=== PATIENT | female | born 1955 | race Caucasian/White ===

== ENCOUNTER 2018-10-23 16:41 | Outpatient (RCR) | payer MEDICARE, MEDICAID, SELFPAY ==
--- NOTE | 2018-10-23 17:53 | HP.PTEVAL_ITS ---
Patient's Visit Information JOSE MOY is a 63 year old F referred to Physical Therapy by Jolie Morfin MD with a diagnosis of CHRONIC PAIN,OSTEOARTHRITIS OF SPINE WITH RADDICULOPATHY. Date of Evaluation: 10/23/18 Physical Therapist: Efren Costello PT, Cert MDT, OCS - Visit Plan Frequency: 2x /Week Duration: 4 Weeks Plan: AQUATIC FOR LUMBAR ROM,DLS,POSTURAL EX'S,LE FLEXABLITY/STRENGTHENING - Subjective Findings: This 63 y/o female presents to physical therapy with lumbar pain many years. Patient pain located left L-S -buttuck decribed as ache. Aggravating symptoms walking,standing,lifting,bending,sitting. Symptoms affect ADL's cleaning,housework tasks. Alleviating heat ,hot bath. C/O left parathesia foot left. Coughing sneezing-. Patient has had prior PT land exercises which made symptoms worse. Patient pain affects sleeping. Patient sees pain management epidural injections. Patient pain affects QOL and ADL'S.Patient had ostomy left pelvis ,neuropathy and RSD comorbities. SOCIAL: . VOCATION: disabled - Pain Left Back Pain Intensity (Out of 10): 7 Pain Intensity Range: 10 - Objective POSTURE: mild foward posture. GAIT: reciprocal pattern ,mild foward posture. PALAPTION: tender S-I. SYMMTRIES: leg length descrepency. NEURO: denies parathesia/tingling,reflexes L3-4,L4-5,L5-S1 1/3. MMT: quads/hams 4-/5,hip flexion 4-/5 ,ankle 4/5. HIP ROM: IR 25 degrees,ER 45 deegrees. FLEXABILITY: hams min tight ,mod piriformis - Special Tests L/S Slump test left side: Negative L/S Slump test right side: Negative L/S Left Straight Leg Raise: Negative L/S Right Straight Leg Raise: Negative L/S Left Femoral Nerve Tension: Negative L/S Right Femoral Nerve Tension: Negative Lumbar Standing: Flexion - Mechanical Response: No effect Lumbar Standing: Flexion - Symptoms During Testing: Increases Lumbar Standing: Flexion - Symptoms After Testing: Worse Lumbar Standing: Extension - Mechanical Response: No effect Lumbar Standing: Extension - Symptoms During Testing: Increases Lumbar Standing: Extension - Symptoms After Testing: Worse - Goals Goal 1:: Independant with Aquatic PT Goal Time Frame: 4-6 Weeks Goal 2:: Independant with posture/body mechanics Goal Time Frame: 4-6 Weeks Goal 3:: Decrease back pain by 50% or greater to improve function with ADL'S Goal Time Frame: 4-6 Weeks Goal 4:: Patient to improve lumbar ROM for function of recovery Goal Time Frame: 4-6 Weeks Goal 5:: Patient improve back owsestry by 5 points or greater to improve function. Goal Time Frame: 4-6 Weeks - Rehabilitation Potential Physical Therapy Diagnosis: Patient has chronic pain and lumbar pain with with decrease lumbar ROM ,weakness in legs,impairs function with ADL'S walking sa tnding. Rehabilitation Potential: Good - Anticipated Interventions Patient/Client Instruction: Educate patient on: Condition, Plan of Care For the Purpose of:: To decrease pain, To increase ROM, To improve muscle performance and motor function, To improve ability to perform ADL's, To increase tolerance to activity/condition/position, To improve performance and independence with ADL's, To improve ability of physical actions for home/community/work/leisure, To improve gait and locomotor functions, To increa se flexibility/ROM, To improve ability to perform tasks related to life management Therapeutic Exercise to Include: Strength training, Body mechanics, Postural training, Flexibilty training, In an aquatic setting, Dynamic Lumbar Stabilization For the Purpose of:: To decrease pain, To increase ROM, To improve muscle performance and motor function, To improve ability to perform ADL's, To increase tolerance to activity/condition/position, To improve ability of physical actions for home/community/work/leisure, To improve health of tissue, To decrease soft tissue restriction, To increase flexibility/ROM, To reduce risk of recurrence, To improve ability to perform tasks related to life management Thank you for the opportunity to evaluate your patient. For Medicare and Medicare HMO plans, please review the plan of care and approve it. It will need to be FAXED BACK to us at [phone] for Medicare purposes. For Medicare only, by signing this I certify the plan of care. Please let me know if there are questions or concerns regarding this plan of care. Physician Signature: Date:
--- NOTE | 2019-01-30 08:31 | HP.PTDCNRP_ITS ---
HP - Discharge Summary (1) - Patient Information JOSE MOY was seen in my office for initial evaluation on 10/23/18. The following Plan of Care was established for this patient: Initial Frequency: 2x /Week Initial Duration: 4 Weeks - Anticipated Interventions Patient/Client Instruction: Educate patient on: Condition, Plan of Care For the Purpose of:: To decrease pain, To increase ROM, To improve muscle perfor avelino and motor function, To improve ability to perform ADL's, To increase tolerance to activity/condition/position, To improve performance and independence with ADL's, To improve ability of physical actions for home/community/work/leisure, To improve gait and locomotor functions, To increase flexibility/ROM, To improve ability to perform tasks related to life management Therapeutic Exercise to Include: Strength training, Body mechanics, Postural training, Flexibilty training, In an aquatic setting, Dynamic Lumbar Stabilization For the Purpose of:: To decrease pain, To increase ROM, To improve muscle performance and motor function, To improve ability to perform ADL's, To increase tolerance to activity/condition/position, To improve ability of physical actions for home/community/work/leisure, To improve health of tissue, To decrease soft tissue restriction, To increase flexibility/ROM, To reduce risk of recurrence, To improve ability to perform tasks related to life management This patient was last seen in our office . Pertinent comments regarding their Physical therapy will appear below: Patient intial PT evaluation for chronic pain and hip pain thus is d/c due to NS. At this point I will be discontinuing this patient from physical therapy. I would be happy to see this patient again in the future if found appropriate by the physician. Thank you! Efren Costello, PT, Cert MDT, OCS
== END 2018-10-23 19:00 | disposition home or self-care (01) ==
LOC: PT 16:41
PROVIDERS: Family Provider Internal Medicine; PCP Internal Medicine; Referring Provider Internal Medicine; Visit Provider Internal Medicine
DX: M47.26 Other spondylosis with radiculopathy, lumbar region (principal); G89.29 Other chronic pain
CPT/HCPCS: 97162

== ENCOUNTER 2020-08-16 15:01 | Emergency (ER) | payer MEDICARE, MEDICAID, SELFPAY ==
[2020-08-16 15:03] VITALS: BP 177/102; PULSE 90; RESP 20; TEMP 35.7; O2SAT 97; BMI 37.7
--- NOTE | 2020-08-16 15:16 | CT_ITS ---
STUDY: CT ABDOMEN AND PELVIS WITH CONTRAST REASON FOR EXAM: Female, 65 years old. BRIGHT RED RECTAL BLOOD WITH ABD PAIN SINCE YESTERDAY, ELEV WBC RADIATION DOSAGE (If Supplied By Facility): CTDIvol = ( 19.31 ) mGy, DLP = ( 1289.76 ) mGycm TECHNIQUE: Transaxial images were obtained from the dome of the diaphragm to the symphysis pubis without oral contrast. IV 100mL Isovue-370 was administered. Sagittal and coronal images were reconstructed. Was Individualized dose optimization techniques were used for this CT. COMPARISON: None. FINDINGS: The visualized lung bases are unremarkable. The visualized portions of the heart are within normal limits. Normal liver. Normal gallbladder and extrahepatic biliary system. Normal spleen. Normal pancreas. Normal bilateral adrenal glands. Normal right kidney. Small 1 to 2 mm nonobstructing calyceal stones, otherwise unremarkable left kidney. Normal visualized stomach. Normal small intestine. Significant wall thickening of the distal descending and sigmoid colon with associated mesenteric stranding and free fluid suggests acute colitis. The appendix is visualized and appears normal. Normal abdominal aorta. Normal inferior vena cava. Normal retroperitoneum. Normal urinary bladder. Normal visualized uterus. Normal abdominal wall. Intact osseous structures. CT/Abdomen/Pelvis W IV Cont ONLY IMPRESSION: Significant wall thickening of the distal descending and sigmoid colon with associated mesenteric stranding and free fluid suggests acute colitis. Electronically Signed: Evangelista Silva MD at 17:20 EST Tel , Service support ,
--- NOTE | 2020-08-16 15:17 | EKG12_ITS ---
Test Reason : GI BLEED Blood Pressure : / mmHG Vent. Rate : 084 BPM Atrial Rate : 084 BPM P-R Int : 120 ms QRS Dur : 090 ms QT Int : 390 ms P-R-T Axes : 062 010 040 degrees QTc Int : 460 ms Normal sinus rhythm Nonspecific ST abnormality Abnormal ECG Confirmed by JIM SHAH, LIZZETTE ([id number]), primer expeditor and drier LUPE BRUMFIELD ([id number]) on 08/18/2020 11:56:22 A M Referred By: CL Confirmed By:ELINOR FERNANDEZ MD
--- NOTE | 2020-08-16 15:19 | ED.VIS.GEN ---
History of Present Illness Chief Complaint: GI Bleed Informant: Patient Narrative: 65-year-old female presents with concern for GI bleeding. States that she was constipated for approximately 3 days until yesterday. Patient had a large bowel movement and then began having an episode of bright red blood per rectum. States that she has had 10 of these episodes. States that she feels like she does have to have a bowel movement but then will have uncontrollable blood from her rectum. States it is dark red in nature. States that she has lower aching abdominal pain. States it is intermittent. Denies any history of GI bleeding. States that she has had diverticulosis documented in the past. Patient is not on anticoagulation. Denies any chest pain, shortness of breath. Does admit to some mild lightheadedness. Nuys any urinary symptoms or vaginal bleeding. Past Medical History - Allergies and Home Meds Allergies/Adverse Reactions: Allergies No Known Allergies Allergy (Verified 08/16/20 15:02) Primary Care Physician: Jolie Morfin MD [STAFF PHYSICIAN] - Prior records reviewed: Yes Past Medical History: None Surgical History: - - Multiple abdominal surgeries Lives: Spouse/ Significant Other Smoking Status: Current every day smoker Alcohol: None Drugs: None Review of Systems General: Denies: Chills, Fever, Sweats Eyes: Denies: Visual changes - bilaterally, Diplopia ENT: Denies: Rhinorrhea, Sore throat Cardiovascular: Denies: Chest pain, Palpitations Respiratory: Denies: Dyspnea, Cough, Dyspnea on exertion Gastrointestinal: Reports: Abdominal pain, Hematochezia. Denies: Nausea, Vomiting, Diarrhea, Melena Genitourinary: Denies: Dysuria, Hematuria, Frequency Musculoskeletal: Denies: Back pain, Extremity Pain Skin: Denies: Rash, Wounds Neurological: Denies: Headache, Weakness, Numbness Physical Exam Vital Signs/Narrative: Vital Signs Temp Pulse Resp BP Pulse Ox 08/16/20 15:03 96.2 F L 90 20 H 177/102 H 97 General: Well nourished, Well developed, No Acute Distress Head: Normocephalic, Atraumatic Eyes: Perrl, EOMI ENT: Moist mucous membranes, No rhinorrhea Neck: Supple, Nontender Cardiovascular: Regular rate, Regular rhythm, No murmurs Respiratory: No distress, CTA bilaterally, Chest nontender Abdomen: Soft, Nontender, Nondistended, Normal bowel sounds Rectal: - - Dark red blood on exam. No internal or external hemerrhoids. Back: Nontender, Normal Inspection Extremities: Nontender, No edema Skin: Normal color, No rash Neurological: Alert, Oriented x3, Cranial nerves II-XII grossly intact, Normal Strength, Normal Sensation Psychological: Normal affect, Normal Mood Diagnostic/Tx/Re-eval - Rhythm Strip Rhythm Strip: Sinus Rhythm Rate: 84 Ectopy: None - EKG Initial EKG Interpretation: Sinus Rhythm - Sinus rhythm at 84 bpm. ID interval of 120 ms. QTC of [address] changes. No evidence of ST elevation or depression at this time. - Medical Decision Making Patient appears well nontoxic. Vital signs within normal limits. Benign abdominal exam. Hemoccult positive. Hemoglobin 15.5. Patient has a slight leukocytosis. CT shows an area of colitis of the descending and sigmoid colon. Patient has no episodes of hematochezia here in the emergency department. She is orthostatic negative. Spoke with general surgeon on-call Dr. Griffin who felt that she could likely be scoped as an outpatient but that if she is bleeding heavily she should be transferred to a facility that has GI on-call. Patient is not on anticoagulation. On reevaluation patient is feeling improved. Spoke with her about admission versus transfer. Patient refuses both. States that she has to take care of her pets. Patient will be treated with Cipro, Flagyl, Bentyl. Patient states that she has had many episodes of colitis prior secondary to her anxiety. She denies any fever or chills at this time and will be given a primary care physician as she recently fired her for not giving her Xanax. Patient will also be given gastroenterologic follow-up. Asked to return for new or worsening symptoms. Patient agreeable and stable at time of discharge. Impression: 1. Rectal bleeding 2. Colitis ED Disposition - Plan for ED Patient: Disposition: Home or Assisted Living Instructions: ED Lower GI Bleeding (Stable) Prescriptions: Dicyclomine HCl [Bentyl] 20 mg PO TIDAC #20 cap Prescription Printed Ciprofloxacin [Cipro] 500 mg PO BID #14 tab Prescription Printed metroNIDAZOLE [Flagyl] 500 mg PO Q8H #21 tab Prescription Printed Referrals: Carmen Quach MD [STAFF PHYSICIAN] - 2 Days Js Marroquin MD [NON-STAFF] - 5-7 Days Additional Instructions: Please return for any worsened bleeding. If you begin to have heavy rectal bleeding please call 911 to return to the emergency department.
[2020-08-16 15:40] LABS: Absolute Lymphocyte Count 1.92 X10^3/uL (0.83-4.51); Absolute Neutrophil Count 9.9 X10^3/uL (2.0-7.7); Basophil# 0.03 X10^3/uL; Basophil% 0.2 % (0-1); Eosinophil# 0.09 X10^3/uL; Eosinophils% 0.7 % (0-5); Hematocrit 46.1 % (37-47); Hemoglobin 15.5 g/dL (12.0-15.0); Lymphocyte # 1.92 X10^3/ul (4.0); Lymphocyte % 14.8 % (19-41); Mean Corp Hgb Conc 33.6 g/dL (32-36); Mean Corpuscular Hgb 33.2 pg (27.0-32.0); Mean Corpuscular Volume 98.7 fL (81-99); Monocyte# 0.98 X10^3/uL; Monocyte% 7.6 % (0-10); NRBC Flagged by Analyzer 0 % (0-5); Neutrophil # 9.86 X10^3/uL (2.7-7.7); Neutrophil % 76.2 % (47-70); Platelet Count 218 K/mm3 (150-450); RBC Distribution Width CV 12.1 % (11.6-14.6); RBC Distribution Width SD 44.5 fl (35.1-43.9); Red Blood Count 4.67 M/mm3 (4.2-5.4); White Blood Count 12.9 K/mm3 (4.4-11.0)
[2020-08-16 15:55] VITALS: BP 133/115; BP 144/105; BP 157/75; PULSE 80; PULSE 89; PULSE 98
[2020-08-16 15:58] LABS: Bacteria 0 SEEN /hpf (None Seen); Mucous, Urine 0 SEEN /hpf (<or=2+); Red Blood Cells-Urine 0 SEEN /hpf (0-5)
[2020-08-16 15:59] LABS: ALB/GLOB Ratio 1.1 RATIO (0.9-2.4); AST(SGOT) 14 U/L (15-37); Alanine Aminotransfer ALT/SGPT 19 U/L (13-56); Albumin, Serum 3.7 g/dL (3.2-5.0); Alkaline Phosphatase 83 U/L (45-117); Anion Gap 2 (5-15); BUN 3 mg/dL (7-18); BUN/Creat Ratio 4.7 RATIO (10-20); Chloride 104 mmol/L (98-107); Creatinine, Serum 0.64 mg/dL (0.55-1.02); EST Glomerular Filtration Rate 100 mL/min (>60); Est Glom Filt Rate - Afr Amer 120 mL/min (>60); Estimated Creatinine Clearance 67.89 ml/min; Globulin 3.5 g/dL (2.2-4.2); Glucose 112 mg/dL (74-106); Potassium 3.4 mmol/L (3.5-5.1); Protein, Total 7.2 g/dL (6.4-8.2); Sodium Level 137 mmol/L (136-145)
[2020-08-16 16:00] LABS: Lactic Acid 1.3 mmol/L (0.4-1.9)
[2020-08-16 16:05] LABS: Color, Urine Yellow (Yellow); Glucose, Dipstick Normal (Normal); Ketone-Dipstick Negative (Negative); Leukocyte Esterase-Dipstick 25 /ul (Negative); Nitrite-Dipstick Negative (Negative); Occult Blood-Urine 10 /ul (Negative); Protein-Dipstick 15 mg/dl (Negative); Specific Gravity, Urine 1.015 (1.002-1.030); Urine Bilirubin Dipstick Negative (Negative); Urine Clarity Clear (Clear); Urine Urobilinogen 4 mg/dl (Normal)
[2020-08-16 16:11] LABS: Squamous Epithelial Cells - UA 5-10 SEEN /hpf (5-10); White Blood Cells 0-5 SEEN /hpf (0-5)
[2020-08-16 17:00] VITALS: BP 158/77; PULSE 72; RESP 16; O2SAT 96
[2020-08-16 17:56] VITALS: BP 176/82; PULSE 79; RESP 16; O2SAT 98
== END 2020-08-16 17:56 | disposition home or self-care (01) ==
PROVIDERS: Emergency Provider Emergency Medicine
DX: K62.5 Hemorrhage of anus and rectum (principal); K52.9 Noninfective gastroenteritis and colitis, unspecified; F17.200 Nicotine dependence, unspecified, uncomplicated
CPT/HCPCS: 74177; 80053; 81001; 82274; 83605; 84484; 85025; 93005; 99284; Q9967; A4216; J2405

== ENCOUNTER 2022-06-29 15:51 | Emergency (ER) | payer MEDICARE, MEDICAID, SELFPAY ==
[2022-06-29 15:52] VITALS: BP 220/106; PULSE 92; RESP 16; TEMP 37.1; O2SAT 97; BMI 34.2
--- NOTE | 2022-06-29 16:05 | RAD_ITS ---
INDICATION: chest pain EXAMINATION/TECHNIQUE: X-RAY - XR Chest 1 View COMPARISON: None. FINDINGS: The lungs are clear. Tortuous and calcified thoracic aorta. The heart is not enlarged. No pleural effusion or pneumothorax. Degenerative changes of the thoracic spine. RAD/Chest 1 View (Portable) IMPRESSION: No acute radiographic abnormalities. Electronically Signed: Miguel Ryan MD at 16:49 EST ,
[2022-06-29 16:39] LABS: Absolute Neutrophil Count 5.2 X10^3/uL (2.0-7.7); Basophil# 0.02 X10^3/uL; Basophil% 0.3 % (0-1); Eosinophil# 0.05 X10^3/uL; Eosinophils% 0.7 % (0-5); Hemoglobin 14.7 g/dL (12.0-15.0); Lymphocyte % 21.3 % (19-41); Mean Corp Hgb Conc 32.7 g/dL (32-36); Mean Corpuscular Hgb 32.1 pg (27.0-32.0); Mean Corpuscular Volume 98.3 fL (81-99); Mean Platelet Vol. 10.9 fl (6.2-12.0); Monocyte# 0.66 X10^3/uL; Monocyte% 8.8 % (0-10); NRBC Flagged by Analyzer 0 % (0-5); Neutrophil # 5.16 X10^3/uL (2.7-7.7); Neutrophil % 68.5 % (47-70); Platelet Count 213 K/mm3 (150-450); RBC Distribution Width CV 12.5 % (11.6-14.6); RBC Distribution Width SD 45.1 fl (35.1-43.9); Red Blood Count 4.58 M/mm3 (4.2-5.4); White Blood Count 7.5 K/mm3 (4.4-11.0)
[2022-06-29 16:43] VITALS: BP 178/107; PULSE 76; RESP 15; O2SAT 94
--- NOTE | 2022-06-29 16:51 | ED.VIS.CHEST ---
HPI History of Present Illness Chief Complaint: Chest Pain Detail of Chief Complaint: Chest pain x4 days Informant: patient Narrative Narrative: Patient presents to the emergency department with complaint of chest discomfort started 4 days ago. Patient states initially was mild and intermittent in the center of her chest. Patient states today the pain more frequent she describes a sharp stabbing pain that lasts up to 2 seconds and radiates through to her back. Patient tells me it feels like when she had pleurisy. Patient also thinks that it might be stress related as she discontinued her Klonopin 4 days ago. Patient denies recent travel or surgery. No history of PE or DVT. She has no heart history. Patient is a smoker. Prior Similar Symptoms: Yes [facility] Medical History (Updated 06/29/22 @ 19:[address] Kim Crawley DO) IBS (irritable bowel syndrome) Home Medications lisinopril 40 mg tablet 10 mg PO DAILY 08/16/20 [History Last Taken 08/16/20] oxycodone 15 mg tablet,crush resistant,extended release 12 hr 15 mg PO Q8H 08/16/20 [History Last Taken 08/15/20] doxycycline monohydrate 100 mg capsule 100 mg PO BID #20 CAPSULES 06/29/22 [Rx Last Taken Unknown] lansoprazole 30 mg capsule,delayed release (Prevacid) 30 mg PO DAILY 06/29/22 [History Last Taken Unknown] Allergy/AdvReac Type Severity Reaction Status Date / Time No Known Allergies Allergy Verified 06/29/22 16:55 Social History Smoking Status: Current every day smoker tobacco type: cigarettes ROS ROS ED Review of Systems ROS Unobtainable: other Constitutional Constitutional ED: Reports lethargy; Denies chills, fever(s), sweats or weight loss Eyes Eyes: Denies blurry vision, change in vision or diplopia ENT ENT ED: Denies rhinorrhea or sore throat Cardiovascular Cardiovascular: Reports chest pain; Denies orthopnea or racing heartbeat Respiratory/Chest Respiratory/Chest: Denies cough, dyspnea, dyspnea on exertion, orthopnea or sputum Gastrointestinal Gastrointestinal: Denies abdominal pain, diarrhea, nausea or vomiting Genitourinary Genitourinary ED: Denies dysuria, hematuria or urinary frequency Musculoskeletal Musculoskeletal: Denies arthralgias, back pain, myalgias or neck pain Integumentary Denies abscess, Abrasions or rash Neurologic Neurologic: Denies headache(s) or weakness Psychiatric Psychiatric: Denies anxiety, depression or suicidal thoughts Endocrine Endocrinology: Denies polydipsia, polyphagia or polyuria Hematologic/Lymphatic Hematologic/Lymphatic: Denies easy bleeding, easy bruising or lymphadenopathy Allergic/Immunologic Allergic/Immunologic ED: Denies mouth swelling, tongue swelling or urticaria EXAM Physical Exam Const Vital Signs: 06/29/22 15:52 06/29/22 16:43 06/29/22 16:43 Temperature 98.8 F Temperature Source Temporal Pulse Rate 92 76 Respiratory Rate 16 15 Respiratory Effort Blood Pressure 220/106 H 178/107 H Blood Pressure Mean 144 130 Pulse Ox 97 94 94 Oxygen Delivery Method Room Air Room Air Room Air 06/29/22 16:58 06/29/22 17:01 06/29/22 17:21 Temperature 98.9 F Temperature Source Temporal Pulse Rate 82 77 Respiratory Rate 16 14 Respiratory Effort Normal Non-Labored Blood Pressure 183/104 H 198/179 H Blood Pressure Mean 130 185 Pulse Ox 94 95 Oxygen Delivery Method Room Air Room Air 06/29/22 18:05 06/29/22 18:05 Temperature 98.8 F 98.8 F Temperature Source Temporal Temporal Pulse Rate 78 82 Respiratory Rate 16 14 Respiratory Effort Blood Pressure 171/86 H 171/86 H Blood Pressure Mean 114 114 Pulse Ox 97 97 Oxygen Delivery Method Room Air Room Air Positive well nourished and well developed General Appearance ED: well developed and NAD HEENT Reports TM's clear and moist mucous membranes normocephalic and atraumatic; Negative for trauma or tenderness Tympanic Membrane ED: Yes TM's clear Eyes PERRL and EOMs intact bilaterally General Eye ED: Negative for pale conjunctiva or scleral icterus Neck no lymphadenopathy, supple and no JVD General: Negative for tenderness Chest Wall inspection of chest normal and palpation of chest normal Chest: Negative for tenderness Resp normal respiratory effort and clear to auscultation bilaterally Effort and Inspection: Negative for respiratory distress or pain with movement Auscultation: Negative for rhonchi, wheezes or diminished lung sounds Cardio regular rate, regular rhythm, S1 normal heart sound, S2 normal heart sound and no murmurs Peripheral Pulses: pulses 2+ throughout GI normal to inspection, nondistended, normoactive bowel sounds, soft to palpation, non-tender, non-distended and no masses Back/Spine no CVA tenderness and no thoracic nor lumbar tenderness Extremity normal to inspection General Extremety ED: Negative for edema General Extremity: Negative for edema Neuro oriented x3, CN's II-XII intact bilaterally, no sensory deficits noted and gait normal Sensorium / Orientation: awake, alert, oriented to person, oriented to place and oriented to time Motor Exam: strength 5/5 throughout and strength abnormal Psych mental status grossly normal Skin no rashes or lesions noted and no wounds Heart Score History: Slightly/Non-Suspicious ECG: Nonspecific Repolarization Age: >/= 65 years Risk Factors: 1 or 2 Risk Factors Troponin: </= Normal Limit Score: 4 MDM MDM MDM Narrative Medical decision making narrative: Patient presents with chest pain. On arrival she was given aspirin and placed on a structures technician. EKG obtained showed a sinus rhythm with no acute ST segment changes. Lab work-up showed a normal troponin and a normal D-dimer. Sed rate was normal at 28. Chemistries were unremarkable. Chest x-ray showed nothing acute. Patient did receive a delta troponin also that was normal. At this point her chest pain is atypical and I do not feel she is having acute coronary syndrome. Patient states that she is been coughing for a month and would like to have an antibiotic because she has not gotten better in this last month at a time she is bringing up yellow and green phlegm. I will treat her with Doxy for 10 days. Patient advised to follow-up with her primary care physician within next 5 to 7 days. She is to return if worsening pain, increasing shortness of breath, or condition should worsen anyway. Lab Data Attestation: I reviewed the patient's lab results. Labs: Laboratory Results - last 24 hr 06/29/22 06/29/22 06/29/22 16:24 16:24 16:24 WBC 7.5 RBC 4.58 Hgb 14.7 Hct 45.0 MCV 98.3 MCH 32.1 H MCHC 32.7 RDW Std Deviation 45.1 H RDW Coeff of Harish 12.5 Plt Count 213 MPV 10.9 Immature Gran % (Auto) 0.400 Neut % (Auto) 68.5 Lymph % (Auto) 21.3 [place] % (Auto) 8.8 Eos % (Auto) 0.7 Baso % (Auto) 0.3 Absolute Neuts (auto) 5.2 Absolute Lymphs (auto) 1.60 Nucleated RBC % 0 ESR 28 D-Dimer Quant (PE/DVT) Sodium 137 Potassium 3.2 L Chloride 102 Carbon Dioxide 35.0 H Anion Gap 0 L BUN 4 L Creatinine 0.56 Estim Creat Clear Calc 71.94 Est GFR (MDRD) Af Amer 141 Est GFR (MDRD) Non-Af 116 BUN/Creatinine Ratio 7.2 L Glucose 122 H Calcium 9.0 Troponin I High Sens 8 06/29/22 06/29/22 16:24 18:28 WBC RBC Hgb Hct MCV MCH MCHC RDW Std Deviation RDW Coeff of Harish Plt Count MPV Immature Gran % (Auto) Neut % (Auto) Lymph % (Auto) [place] % (Auto) Eos % (Auto) Baso % (Auto) Absolute Neuts (auto) Absolute Lymphs (auto) Nucleated RBC % ESR D-Dimer Quant (PE/DVT) 0.47 Sodium Potassium Chloride Carbon Dioxide Anion Gap BUN Creatinine Estim Creat Clear Calc Est GFR (MDRD) Af Amer Est GFR (MDRD) Non-Af BUN/Creatinine Ratio Glucose Calcium Troponin I High Sens 7 Radiography Diagnostic Testing: Clinical Impression(s) from Imaging Studies Chest X-Ray 06/29/22 16:05 IMPRESSION: No acute radiographic abnormalities. Electronically Signed: Miguel Ryan MD at 16:49 EST , 1 view chest x-ray obtained interpreted by myself no acute disease process. Radiology in agreement. EKG Initial EKG: Attestation: I personally reviewed and interpreted this EKG as follows: Comments: Sinus rhythm with a rate of 87 bpm with old septal infarct Discharge Plan Triage Chief Complaint: Chest Pain ED Provider: Kim Crawley Dx/Rx/DC Orders Clinical Impression: Chest pain, Acute upper respiratory infection Instructions: Acute Bronchitis, ED Chest Pain, Uncertain Cause Prescriptions: New doxycycline monohydrate 100 mg capsule 100 mg PO BID Qty: 20 0RF No Action lisinopril 40 MG tablet 10 mg PO DAILY oxycodone 15 MG tablet,oral only,ext.rel.12 hr 15 mg PO Q8H lansoprazole [Prevacid] 30 mg capsule,delayed release(DR/EC) 30 mg PO DAILY Label Comments: TAKE 1 CAPSULE BY MOUTH EVERY DAY Primary Care Provider: Care Physician,No Primary Referrals: Care Physician,No Primary [Primary Care Provider] - Activity Restrictions/Additional Instructions: See your family doctor in 5 to 7 days for repeat exam. Disposition Disposition: Home, Self Care
[2022-06-29 17:01] VITALS: BP 183/104; PULSE 82; RESP 16; O2SAT 94
[2022-06-29] MEDS: Aspirin 81 MG TAB.CHEW 324 MG PO (17:02)
[2022-06-29 17:12] LABS: Anion Gap 0 (5-15); BUN 4 mg/dL (7-18); BUN/Creat Ratio 7.2 RATIO (10-20); Chloride 102 mmol/L (98-107); Creatinine, Serum 0.56 mg/dL (0.55-1.02); EST Glomerular Filtration Rate 116 mL/min (>60); Est Glom Filt Rate - Afr Amer 141 mL/min (>60); Estimated Creatinine Clearance 71.94 ml/min; Glucose 122 mg/dL (74-106); Potassium 3.2 mmol/L (3.5-5.1); Sodium Level 137 mmol/L (136-145); Troponin-I HS 8 pg/mL (3.0-54.0)
[2022-06-29 17:21] VITALS: BP 198/179; PULSE 77; RESP 14; TEMP 37.2; O2SAT 95
[2022-06-29 17:36] LABS: D-Dimer Quantitative (DVT/PE) 0.47 FEU/ug/m (0.27-0.49)
[2022-06-29 17:42] LABS: Erythrocyte Sedimentation Rate 28 mm/hr (0-30)
[2022-06-29 18:05] VITALS: BP 171/86; PULSE 78; PULSE 82; RESP 14; RESP 16; TEMP 37.1; O2SAT 97
[2022-06-29 18:51] LABS: Troponin-I HS 7 pg/mL (3.0-54.0)
[2022-06-29 19:13] VITALS: BP 164/115; PULSE 72; PULSE 76; RESP 12; RESP 14; O2SAT 95
[2022-06-29] MEDS: Doxycycline 100 MG CAPSULE PO (19:18)
== END 2022-06-29 19:18 | disposition home or self-care (01) ==
PROVIDERS: Emergency Provider Emergency Medicine; Visit Provider Emergency Medicine
DX: R07.9 Chest pain, unspecified (principal); J06.9 Acute upper respiratory infection, unspecified; F17.210 Nicotine dependence, cigarettes, uncomplicated; Z79.899 Other long term (current) drug therapy
CPT/HCPCS: 71045; 80048; 84484; 85025; 85379; 85652; 93005; 99284; A4216

== ENCOUNTER 2023-06-12 11:59 | Inpatient (IN) | payer MEDICARE, MEDICAID, SELFPAY ==
[2023-06-12] VITALS (12 sets, daily range): BP systolic 170–193; BP diastolic 72–139; PULSE 76–93; RESP 12–28; TEMP 36.6–36.8; O2SAT 94–98; BMI 38.2; BMI 31.1
--- NOTE | 2023-06-12 12:08 | CT_ITS ---
We are attempting to reach an attending provider to discuss findings. An addendum with communication details will be sent when the communication is complete. STUDY: CT BRAIN WITHOUT CONTRAST REASON FOR EXAM: Female, 68 years old. Neuro deficit. Stroke alert. RADIATION DOSAGE (If Supplied By Facility): CTDIvol = ( 45 ) mGy, DLP = ( 779 ) mGycm TECHNIQUE: Transaxial CT imaging of the brain was performed without administration of intravenous contrast material. Individualized dose optimization techniques were used for this CT. COMPARISON: No relevant prior comparison study available FINDINGS: PARENCHYMA: There is no acute bleed or infarct. There are chronic ischemic and atrophic changes. VENTRICLES: There is no hydrocephalus. MASTOID AIR CELLS AND PARANASAL SINUSES: The visualized paranasal sinuses are clear. The mastoid air cells are clear. BONES: There is no skull fracture. SOFT TISSUES: The visualized soft tissues are within normal limits. CT/STROKE Brain/Head without Cont IMPRESSION: No acute intracranial abnormality. Chronic ischemic and atrophic changes. Electronically Signed: Maximo Rubio MD at 12:25 EST ,
--- NOTE | 2023-06-12 12:08 | EKG12_ITS ---
Test Reason : POSS STROKE Blood Pressure : / mmHG Vent. Rate : 078 BPM Atrial Rate : 078 BPM P-R Int : 134 ms QRS Dur : 084 ms QT Int : 408 ms P-R-T Axes : 046 -02 027 degrees QTc Int : 465 ms Sinus rhythm with marked sinus arrhythmia Nonspecific ST abnormality Abnormal ECG Confirmed by JIM SHAH, LIZZETTE ([id number]), editor school photograph YAEL NEGRON ([id number]) on 06/20/2023 6:44:18 AM Referred By: Confirmed By:ELINOR FERNANDEZ MD
--- NOTE | 2023-06-12 12:08 | CT_ITS ---
STUDY: CTA HEAD AND NECK WITH CONTRAST REASON FOR EXAM: Female, 68 years old. Neuro deficit, acute, stroke suspected RADIATION DOSAGE (If Supplied By Facility): CTDIvol = ( 30.50 ) mGy, DLP = ( 749.93 ) mGycm TECHNIQUE: CT angiography was performed with a multi-detector CT scanner. Data acquisition was obtained from the skull base through the vertex following intravenous administration of IV 100mL Isovue-370. MIP images were reconstructed from the axial data set. Post-processing of the angiographic images was performed, with multiplanar reformation and 3D reconstruction. Individualized dose optimization techniques were used for this CT. COMPARISON: No relevant priors. FINDINGS: Normal bilateral petrous carotid arteries. Normal right cavernous carotid artery with a normal supraclinoid bifurcation. Normal left cavernous carotid artery with a normal supraclinoid bifurcation. Normal right A1 segments of the anterior cerebral artery. Normal left A1 segments of the anterior cerebral artery. Normal intact anterior communicating artery (ACOM). Normal bilateral A2 segments of the anterior cerebral arteries. Normal right M1 and M2 segments of the middle cerebral arteries, with a normal M1 bifurcation. Normal left M1 and M2 segments of the middle cerebral arteries, with a normal M1 bifurcation. Normal right posterior communicating artery (PCOM). Normal left posterior communicating artery (PCOM). Normal bilateral vertebral arteries. Normal basilar artery with a normal basilar bifurcation. The visualized bilateral superior cerebellar (SCA) arteries are normal. Normal bilateral P1, P2 and visualized P3 segments of the posterior cerebral arteries. There is no demonstrated aneurysm of the solomon of [place]. There is no demonstrated abnormality of the visualized brain. AORTIC ARCH: Normal visualized aortic arch. Normal origins of the brachiocephalic, left common carotid, and left subclavian arteries. RIGHT CAROTID ARTERIES: Normal right common carotid artery (CCA). Normal right common carotid bulb. Normal origin of the right internal carotid (ICA) artery without a hemodynamically significant stenosis. Normal visualized cervical portion of the right internal carotid artery. Normal origin of the right external carotid artery (ECA). LEFT CAROTID ARTERIES: Normal left common carotid artery (CCA). There is moderate atherosclerotic plaque formation without narrowing of the carotid bulb. Calcified plaque in the proximal left ICA without significant stenosis. Normal visualized cervical portion of the left internal carotid artery. Normal origin of the left external carotid artery (ECA). VERTEBRAL ARTERIES: Normal bilateral vertebral arteries. No suspicious enhancing lesion, airway narrowing or deviation. Incidental note is made of a medial deviation of the common carotid artery on the posterior right hypopharynx. Thyroid gland is unremarkable, lung apices show underlying emphysema CT/STROKE CTA Head AND Neck W/Con IMPRESSION: No CTA evidence of vaso-occlusive disease, significant stenosis, aneurysm or vascular malformation Mild to moderate calcified atherosclerotic plaque in the left common carotid artery bulb, and proximal ICA without significant stenosis N.B. : The above Results were Read Back by Pablo Birch MD to Dequan Bright MD, and understanding confirmed on 06/12/2023 12:40:02 (ET). Electronically Signed: Pablo Birch MD at 12:41 EST ,
--- NOTE | 2023-06-12 12:08 | RAD_ITS ---
STUDY: X-RAY CHEST REASON FOR EXAM: Female, 68 years old. Chest pain TECHNIQUE: Frontal view of the chest COMPARISON: 06/29/2022 FINDINGS: The lungs are clear. There are no pleural effusions. There is no pneumothorax. The heart is normal in size. The visualized osseous structures are within normal limits. RAD/Chest 1 View IMPRESSION: No acute thoracic pathology. Electronically Signed: Maximo Rubio MD at 13:01 EST ,
--- NOTE | 2023-06-12 12:08 | ED.VIS.STROK ---
HPI History of Present Illness Chief Complaint: Confusion Narrative Narrative: 68-year-old female past medical history of hypertension, is a smoker, presents with expressive aphasia and slurred speech that she has had since she woke up this morning. She went to bed last evening at around 10 PM and woke up today stating that she was having problems concentrating, and getting her words out. Additionally, she had stated that this happened to her 2 days ago, but resolved. Stroke team was activated in the room while RN was triaging. Patient denies other symptoms. [facility] Medical History IBS (irritable bowel syndrome) Home Medications lisinopril 40 mg tablet 10 mg PO DAILY 08/16/20 [History Last Taken 08/16/20] oxycodone 15 mg tablet,crush resistant,extended release 12 hr 15 mg PO Q8H 08/16/20 [History Last Taken 08/15/20] doxycycline monohydrate 100 mg capsule 100 mg PO BID #20 CAPSULES 06/29/22 [Rx Last Taken Unknown] lansoprazole 30 mg capsule,delayed release (Prevacid) 30 mg PO DAILY 06/29/22 [History Last Taken Unknown] Allergy/AdvReac Type Severity Reaction Status Date / Time No Known Allergies Allergy Verified 06/12/23 11:59 Social History Smoking Status: Current every day smoker tobacco type: cigarettes ROS ROS ED ROS Narrative Limited secondary to aphasia. Constitutional: No fever, no chills. HEENT: No sore throat. No neck pain. No loss of vision. No rhinorrhea. Cardiovascular: No chest pain. No palpitations. No pedal edema. Respiratory: No cough, no shortness of breath. Abdominal: No abdominal pain. No nausea. No vomiting. Genitourinary: No dysuria. No hematuria. Musculoskeletal: No myalgias. No arthralgias. Neurologic: No headaches. No dizziness. No lightheadedness. Previous difficulty with speech/expressive aphasia 2 days ago-resolved Skin: No rash. No change in color. Psychiatric: No depression. No anxiety. EXAM Physical Exam Narrative Exam Narrative: Afebrile. Vital signs noted. Positive elevation in blood pressure of 170/113. Nontoxic-appearing. Regular rate and rhythm. Lungs clear to auscultation bilaterally. Abdomen soft and nontender with normal active bowel sounds. NIH of 4 for expressive aphasia and dysarthria Const Vital Signs: 06/12/23 12:01 06/12/23 12:09 06/12/23 12:13 Temperature 98.2 F Temperature Source Temporal Pulse Rate 88 Respiratory Rate 28 H Respiratory Effort Normal Non-Labored Respiratory Pattern Normal Blood Pressure 170/113 H 170/113 H Blood Pressure Mean 132 132 Pulse Ox 98 Oxygen Delivery Method 06/12/23 12:08 06/12/23 12:08 06/12/23 12:38 Temperature Temperature Source Pulse Rate 88 93 Respiratory Rate 28 H 16 Respiratory Effort Respiratory Pattern Blood Pressure 170/113 H 172/139 H Blood Pressure Mean 132 150 Pulse Ox 98 96 Oxygen Delivery Method Room Air Room Air Room Air 06/12/23 13:08 06/12/23 13:00 Temperature Temperature Source Pulse Rate 90 76 Respiratory Rate 16 13 Respiratory Effort Respiratory Pattern Blood Pressure 180/83 H 193/112 H Blood Pressure Mean 115 139 Pulse Ox 94 94 Oxygen Delivery Method Room Air Room Air NIHSS NIHSS Initial: 1a Level of Consciousness: 0 1b LOC Questions (Score 2 if aphasic/stupor): 0 1c LOC Commands (Only score 1st attempt): 0 2 Best Gaze (If aphasic, use reflexive mvmts.): 0 3 Visual: 0 4 Facial Palsy: 0 5 Motor Arm Right (UN = amputation/fusion): 0 5 Motor Arm Left: 0 6 Motor Leg Right: 0 7 Limb ataxia (Only + if out of proportion): 0 8 Sensory (Aphasia/stupor=0 or 1, coma=2): 0 9 Best Language: 3 10 Dysarthria (mute, coma=2, intubated=UN): 1 Total Score: 4 MDM MDM MDM Narrative Medical decision making narrative: Stroke team was activated. I do feel that with her risk of hypertension and being a smoker, that this could be TIA versus stroke versus intracranial hemorrhage. As she does not have a lateralizing symptom, given her expressive aphasia and dysarthria, I do feel that the stroke team is appropriate. She is a wake-up stroke and is difficult to pinpoint her time on when she was last known well. EKG was obtained and interpreted by myself independently which demonstrates normal sinus rhythm at 78 bpm with sinus arrhythmia but no acute ST changes. No STEMI. I reviewed her laboratory work and she has normal white count of 7.5, hemoglobin slightly hemoconcentrated at 15.5, hematocrit 47.8, platelet count 305 and normal. Her electrolyte panel is grossly unremarkable with a creatinine of 0.84 and BUN of 10. Sodium normal at 141 with potassium slightly low at 3.4 which I think is nonspecific. High-sensitivity troponin is 9. Chest x-ray in 1 view obtained and interpreted by myself independently shows no evidence of pneumonia or pneumothorax. I reviewed the radiology report which confirms my independent interpretation. I did receive a call from the radiologist regarding the CT of the head which shows no acute hemorrhage or mass. I also received a call from the radiologist regarding the CTA of the head and neck which shows some calcifications of the internal carotid but no significant stenosis. In discussion with the teleneurologist, it was not felt that she was a tPA candidate because she is most likely outside the window. It was felt that with a normal CT and CTA that she could be admitted here for further stroke workup. I will discuss patient with the hospitalist. Disposition is assigned observation in the PCU. Patient is in stable condition. History & Record Review Discussion w/independent historian: Patient Additional record(s) reviewed:: Prior ED visit and Prior labs Lab Data Attestation: I reviewed the patient's lab results. Labs: Laboratory Results - last 24 hr 06/12/23 12:05 WBC 7.5 RBC 4.77 Hgb 15.5 H Hct 47.8 H MCV 100.2 H MCH 32.5 H MCHC 32.4 RDW Std Deviation 47.1 H RDW Coeff of Harish 12.8 Plt Count 305 MPV 9.7 Immature Gran % (Auto) 0.400 Neut % (Auto) 64.5 Lymph % (Auto) 24.1 [place]calfe % (Auto) 8.4 Eos % (Auto) 1.9 Baso % (Auto) 0.7 Absolute Neuts (auto) 4.8 Absolute Lymphs (auto) 1.81 Nucleated RBC % 0 PT 13.7 INR 1.1 APTT 27.3 Sodium 141 Potassium 3.4 L Chloride 107 Carbon Dioxide 32.0 Anion Gap 2 L BUN 10 Creatinine 0.84 Estim Creat Clear Calc 91.73 Est GFR (MDRD) Af Amer 88 Est GFR (MDRD) Non-Af 73 BUN/Creatinine Ratio 12.0 Glucose 130 H Calcium 9.5 Troponin I High Sens 9 Radiography Diagnostic Testing: Clinical Impression(s) from Imaging Studies Brain CT 06/12/23 12:08 IMPRESSION: No acute intracranial abnormality. Chronic ischemic and atrophic changes. Electronically Signed: Maximo Rubio MD at 12:25 EST , ADDENDUM: 06/12/23 1233 IMPRESSION: No acute intracranial abnormality. Chronic ischemic and atrophic changes. N.B. : The above Results were Read Back by Maximo Rubio MD to Dequan Birght MD, and understanding confirmed on 06/12/2023 12:26:41 (ET). Electronically Signed: Maximo Rubio MD at 12:25 EST , Chest X-Ray 06/12/23 12:08 IMPRESSION: No acute thoracic pathology. Electronically Signed: Maximo Rubio MD at 13:01 EST , Head/Neck CTA 06/12/23 12:08 IMPRESSION: No CTA evidence of vaso-occlusive disease, significant stenosis, aneurysm or vascular malformation Mild to moderate calcified atherosclerotic plaque in the left common carotid artery bulb, and proximal ICA without significant stenosis N.B. : The above Results were Read Back by Pablo Birch MD to Dequan Bright MD, and understanding confirmed on 06/12/2023 12:40:02 (ET). Electronically Signed: Pablo Birch MD at 12:41 EST , ADDENDUM: 06/12/23 1248 IMPRESSION: No CTA evidence of vaso-occlusive disease, significant stenosis, aneurysm or vascular malformation Mild to moderate calcified atherosclerotic plaque in the left common carotid artery bulb, and proximal ICA without significant stenosis N.B. : The above Results were Read Back by Pablo Birch MD to Dequan Bright MD, and understanding confirmed on 06/12/2023 12:40:02 (ET). Electronically Signed: Pablo Birch MD at 12:41 EST Reading Location ID and State: [facility] / [place] , Service support , Management Discussion w/another healthcare provider: Hospitalist (Dr. Napoles) Discharge Plan Dx/Rx/DC Orders Clinical Impression: Dysarthria, Expressive aphasia, Hypertension Disposition Disposition: Acute Care Hospital [facility]
[2023-06-12 12:15] LABS: Absolute Lymphocyte Count 1.81 X10^3/uL (0.83-4.51); Absolute Neutrophil Count 4.8 X10^3/uL (2.0-7.7); Basophil# 0.05 X10^3/uL; Basophil% 0.7 % (0-1); Eosinophil# 0.14 X10^3/uL; Eosinophils% 1.9 % (0-5); Hematocrit 47.8 % (37-47); Hemoglobin 15.5 g/dL (12.0-15.0); Lymphocyte # 1.81 X10^3/ul (0.83-4.51); Lymphocyte % 24.1 % (19-41); Mean Corp Hgb Conc 32.4 g/dL (32-36); Mean Corpuscular Hgb 32.5 pg (27.0-32.0); Mean Corpuscular Volume 100.2 fL (81-99); Mean Platelet Vol. 9.7 fl (6.2-12.0); Monocyte# 0.63 X10^3/uL; Monocyte% 8.4 % (0-10); NRBC Flagged by Analyzer 0 % (0-5); Neutrophil # 4.84 X10^3/uL (2.7-7.7); Neutrophil % 64.5 % (47-70); Platelet Count 305 K/mm3 (150-450); RBC Distribution Width CV 12.8 % (11.6-14.6); RBC Distribution Width SD 47.1 fl (35.1-43.9); Red Blood Count 4.77 M/mm3 (4.2-5.4); White Blood Count 7.5 K/mm3 (4.4-11.0)
[2023-06-12 12:21] LABS: International Normalized Ratio 1.1; Prothrombin Time (Protime)PT. 13.7 SECONDS (11.7-14.9)
[2023-06-12 12:22] LABS: Partial Thromboplast Time 27.3 Seconds (24.1-36.2)
[2023-06-12 12:30] LABS: Anion Gap 2 (5-15); BUN 10 mg/dL (7-18); Calcium,Total 9.5 mg/dL (8.5-10.1); Chloride 107 mmol/L (98-107); Creatinine, Serum 0.84 mg/dL (0.55-1.02); EST Glomerular Filtration Rate 73 mL/min (>60); Est Glom Filt Rate - Afr Amer 88 mL/min (>60); Estimated Creatinine Clearance 91.73 ml/min; Glucose 130 mg/dL (74-106); Potassium 3.4 mmol/L (3.5-5.1); Sodium Level 141 mmol/L (136-145); Troponin-I HS 9 pg/mL (3.0-54.0)
--- NOTE | 2023-06-12 13:43 | ED.RN ---
PT REQUESTS SISTER BE CONTACTED AND INFORMED OF ADMISSION. THIS RN CONTACTS PT SISTER TAMI, AND INFORMS HER OF PT ADMISSION AND NEEDING TO FIGURE OUT WHO IS GOING TO TAKE CARE OF THE PATIENTS DOG. SISTER REPORTS THAT SHE WILL FIGURE IT OUT.
[2023-06-12 14:23] LABS: Magnesium 2.3 mg/dL (1.6-2.6)
--- NOTE | 2023-06-12 16:16 | PCM.HP.STD ---
HPI - General General Date of Admission: 06/12/23 Date of Service: 06/12/23 Chief Complaint: Aphasic, dysarthric, altered mental status after she woke up. HPI Narrative JOSE MOY, is a 68 F Was brought to ED for aphasia. The patient can not express herself, does not find words, has moderate language deficits and also cannot pronounce word. She does not understand the communication but keeps on talking irrelevant. She cannot read or write language. She woke up today stating that she has problem concentrating and getting the words out. Similar instance happened about 2 days ago but got a spontaneously resolved. Patient cannot give history herself. Communication is not possible. History mainly taken from ED physician and chart review. In ED, stroke alert was called and ER physician talked to [facility] teleneurologist. Preliminary workup was done including CT head and CTA head and neck. Patient not candidate for thrombolytic because out of time window and LKW not clear. Patient is everyday smoker. Patient further admitted for stroke workup. Patient blood pressure was high in ED but within BP parameters as per stroke guidelines. [facility] Medical History IBS (irritable bowel syndrome) Home Medications lisinopril 40 mg tablet 10 mg PO DAILY 08/16/20 [History Last Taken 08/16/20] oxycodone 15 mg tablet,crush resistant,extended release 12 hr 15 mg PO Q8H 08/16/20 [History Last Taken 08/15/20] doxycycline monohydrate 100 mg capsule 100 mg PO BID #20 CAPSULES 06/29/22 [Rx Last Taken Unknown] lansoprazole 30 mg capsule,delayed release (Prevacid) 30 mg PO DAILY 06/29/22 [History Last Taken Unknown] Allergy/AdvReac Type Severity Reaction Status Date / Time No Known Allergies Allergy Verified 06/12/23 11:59 Social History Smoking Status: Current every day smoker tobacco type: cigarettes ROS ROS Narrative Patient cannot give history and 14 review of system as she cannot understand the communication. Review of Systems ROS Unobtainable: due to encephalopathy and due to mental status Vital Signs Vital Signs Vital Signs: 06/12/23 12:01 06/12/23 12:09 06/12/23 12:13 Temperature 98.2 F Temperature Source Temporal Pulse Rate 88 Respiratory Rate 28 H Respiratory Effort Normal Non-Labored Respiratory Pattern Normal Blood Pressure 170/113 H 170/113 H Blood Pressure Mean 132 132 Pulse Ox 98 Oxygen Delivery Method 06/12/23 12:08 06/12/23 12:08 06/12/23 12:38 Temperature Temperature Source Pulse Rate 88 93 Respiratory Rate 28 H 16 Respiratory Effort Respiratory Pattern Blood Pressure 170/113 H 172/139 H Blood Pressure Mean 132 150 Pulse Ox 98 96 Oxygen Delivery Method Room Air Room Air Room Air 06/12/23 13:08 06/12/23 13:00 06/12/23 13:30 Temperature Temperature Source Pulse Rate 90 76 77 Respiratory Rate 16 13 12 Respiratory Effort Respiratory Pattern Blood Pressure 180/83 H 193/112 H 188/104 H Blood Pressure Mean 115 139 132 Pulse Ox 94 94 96 Oxygen Delivery Method Room Air Room Air Room Air Weight Weight: 194 lb 7.163 oz Body Mass Index (BMI) 38.2 Physical Exam Narrative General: Awake and alert but disoriented to time and place and person. Seems confused and frustrated. HEENT: Atraumatic, PERRLA, EOMI, Normocephalic Oral: Oral mucosa moist no Gingival or Mucosal Lesions/ Ulcerations Neck: Supple, No JVD, Negative Carotid Bruits Lungs: Air entry diminished in bilateral lung bases. No crepitation/rhonchi Cardiovascular: Regular rate, Regular Rhythm, Normal S1, Normal S2, No murmurs Abdomen: Bowel Sounds Present, Soft, Non Tender, Non-Distended : No renal angle tenderness. No suprapubic tenderness. Extremities: No edema, Capillary Refill Less than 3 Seconds Skin: No rashes, No breakdown Musculoskeletal: ROM intact. No Tenderness to Palpation of Joints or Extremities Neurological: Patient does not follow command. NIH stroke scale 4 for answering incorrectly LOC questions and mild to moderate aphasia and dysarthria. Cranial nerves II-XII grossly intact, DTR 2+/4. Psych/Mental Status: Flat affect. Frustrated. Does not understand. Results Lab / Micro Data 06/12/23 12:05 06/12/23 12:05 Labs: Laboratory Results - last 24 hr 06/12/23 12:05: WBC 7.5, RBC 4.77, Hgb 15.5 H, Hct 47.8 H, MCV 100.2 H, MCH 32.5 H, MCHC 32.4, RDW Std Deviation 47.1 H, RDW Coeff of Harish 12.8, Plt Count 305, MPV 9.7, Immature Gran % (Auto) 0.400, Neut % (Auto) 64.5, Lymph % (Auto) 24.1, [place] % (Auto) 8.4, Eos % (Auto) 1.9, Baso % (Auto) 0.7, Absolute Neuts (auto) 4.8, Absolute Lymphs (auto) 1.81, Nucleated RBC % 0, PT 13.7, INR 1.1, APTT 27.3, Sodium 141, Potassium 3.4 L, Chloride 107, Carbon Dioxide 32.0, Anion Gap 2 L, BUN 10, Creatinine 0.84, Estim Creat Clear Calc 91.73, Est GFR (MDRD) Af Amer 88, Est GFR (MDRD) Non-Af 73, BUN/Creatinine Ratio 12.0, Glucose 130 H, Calcium 9.5, Phosphorus 3.0, Magnesium 2.3, Troponin I High Sens 9 Imagaing Radiology Impression Brain CT 06/12/23 12:08 IMPRESSION: No acute intracranial abnormality. Chronic ischemic and atrophic changes. Electronically Signed: Maximo Rubio MD at 12:25 EST , ADDENDUM: 06/12/23 1233 IMPRESSION: No acute intracranial abnormality. Chronic ischemic and atrophic changes. N.B. : The above Results were Read Back by Maximo Rubio MD to Dequan Bright MD, and understanding confirmed on 06/12/2023 12:26:41 (ET). Electronically Signed: Maximo Rubio MD at 12:25 EST , Chest X-Ray 06/12/23 12:08 IMPRESSION: No acute thoracic pathology. Electronically Signed: Maximo Rubio MD at 13:01 EST , Head/Neck CTA 06/12/23 12:08 IMPRESSION: No CTA evidence of vaso-occlusive disease, significant stenosis, aneurysm or vascular malformation Mild to moderate calcified atherosclerotic plaque in the left common carotid artery bulb, and proximal ICA without significant stenosis N.B. : The above Results were Read Back by Pablo Birch MD to Dequan Bright MD, and understanding confirmed on 06/12/2023 12:40:02 (ET). Electronically Signed: Pablo Birch MD at 12:41 EST , ADDENDUM: 06/12/23 1248 IMPRESSION: No CTA evidence of vaso-occlusive disease, significant stenosis, aneurysm or vascular malformation Mild to moderate calcified atherosclerotic plaque in the left common carotid artery bulb, and proximal ICA without significant stenosis N.B. : The above Results were Read Back by Pablo Birch MD to Dequan Bright MD, and understanding confirmed on 06/12/2023 12:40:02 (ET). Electronically Signed: Pablo Birch MD at 12:41 EST , Assessment & Plan Assessment/Plan (1) Expressive aphasia: (2) Dysarthria: PLAN: Plan This 68-year-old female patient admitted for evaluation of stroke. 1. Sensory moderate dysphagia and dysarthria and acute encephalopathy most likely due to acute stroke: Patient is being admitted in PCU. CT brain does not show acute intracranial abnormality. CT of brain shows mild to moderate calcified atherosclerotic in the left CCA bulb and proximal ICA without significant stenosis. NIH stroke scale 4. PT, OT, speech therapy/swallow evaluation and management, nursing NIH stroke scale, BP and glucose monitoring and control as per stroke protocol. TSH, A1c fasting lipid profile tomorrow AM. MRI brain and 2D echo with bubble contrast study ordered. Currently patient is n.p.o. until speech cleared by nursing protocol and a speech therapist. Baby aspirin and atorvastatin ordered. D5 half NS for nutritional purposes as patient is NPO. 2. Uncontrolled hypertension: Blood pressure is elevated but within a stroke guidelines of permissive hypertension. 3. Patient has IBS and possible GERD: On lansoprazole. DVT prophylaxis moderate to high risk: Enoxaparin 40 mg subcu daily. CODE STATUS: Full code unverified. Clinical Impression(s) from Imaging Studies Brain CT 06/12/23 12:08 IMPRESSION: No acute intracranial abnormality. Chronic ischemic and atrophic changes. Chest X-Ray 06/12/23 12:08 IMPRESSION: No acute thoracic pathology. Head/Neck CTA 06/12/23 12:08 IMPRESSION: No CTA evidence of vaso-occlusive disease, significant stenosis, aneurysm or vascular malformation Mild to moderate calcified atherosclerotic plaque in the left common carotid artery bulb, and proximal ICA without significant stenosis Laboratory Results 06/12/23 12:05: WBC 7.5, RBC 4.77, Hgb 15.5 H, Hct 47.8 H, MCV 100.2 H, MCH 32.5 H, MCHC 32.4, RDW Std Deviation 47.1 H, RDW Coeff of Harish 12.8, Plt Count 305, MPV 9.7, Immature Gran % (Auto) 0.400, Neut % (Auto) 64.5, Lymph % (Auto) 24.1, [place] % (Auto) 8.4, Eos % (Auto) 1.9, Baso % (Auto) 0.7, Absolute Neuts (auto) 4.8, Absolute Lymphs (auto) 1.81, Nucleated RBC % 0, PT 13.7, INR 1.1, APTT 27.3, Sodium 141, Potassium 3.4 L, Chloride 107, Carbon Dioxide 32.0, Anion Gap 2 L, BUN 10, Creatinine 0.84, Estim Creat Clear Calc 91.73, Est GFR (MDRD) Af Amer 88, Est GFR (MDRD) Non-Af 73, BUN/Creatinine Ratio 12.0, Glucose 130 H, Calcium 9.5, Phosphorus 3.0, Magnesium 2.3, Troponin I High Sens 9 Charges/Coding Visit Charges Inpatient E&M: 43298 Init Hosp L3
[2023-06-12] MEDS: 0.9% Normal Saline (1000mL) 1,000 ML 75 ML IV (18:52)
[2023-06-12] MEDS: Potassium Chloride 40 MEQ in Dext 5%-0.45% NS 1,000 ML 50 MEQ IV (18:53)
[2023-06-12] MEDS: 0.9% Saline Lock 10 ML Syringe IV (18:53)
[2023-06-12] MEDS: Atorvastatin Calcium 80 MG Tablet PO (20:31)
[2023-06-12] MEDS: Aspirin 325 MG Tablet PO (20:31)
[2023-06-12] MEDS: Enoxaparin 40 MG/0.4 ML Syringe SC (20:32)
[2023-06-12 22:27] LABS: Bedside Glucose 105 mg/dL (74-106)
[2023-06-13] VITALS (11 sets, daily range): BP systolic 133–199; BP diastolic 74–124; PULSE 78–95; RESP 14–18; TEMP 36.3–36.9; O2SAT 92–97; BMI 31.2
[2023-06-13 06:44] LABS: Bedside Glucose 118 mg/dL (74-106)
[2023-06-13 06:49] LABS: Absolute Neutrophil Count 3.7 X10^3/uL (2.0-7.7); Basophil# 0.04 X10^3/uL; Basophil% 0.7 % (0-1); Eosinophil# 0.11 X10^3/uL; Eosinophils% 1.8 % (0-5); Hematocrit 45.5 % (37-47); Hemoglobin 14.5 g/dL (12.0-15.0); Lymphocyte % 29.3 % (19-41); Mean Corp Hgb Conc 31.9 g/dL (32-36); Mean Corpuscular Hgb 31.3 pg (27.0-32.0); Mean Corpuscular Volume 98.3 fL (81-99); Mean Platelet Vol. 10.9 fl (6.2-12.0); Monocyte# 0.46 X10^3/uL; Monocyte% 7.5 % (0-10); NRBC Flagged by Analyzer 0 % (0-5); Neutrophil # 3.72 X10^3/uL (2.7-7.7); Neutrophil % 60.4 % (47-70); Platelet Count 270 K/mm3 (150-450); RBC Distribution Width CV 12.6 % (11.6-14.6); RBC Distribution Width SD 45.5 fl (35.1-43.9); Red Blood Count 4.63 M/mm3 (4.2-5.4); White Blood Count 6.2 K/mm3 (4.4-11.0)
[2023-06-13 07:24] LABS: Anion Gap 5 (5-15); BUN 5 mg/dL (7-18); BUN/Creat Ratio 8.9 RATIO (10-20); Calcium,Total 8.7 mg/dL (8.5-10.1); Chloride 105 mmol/L (98-107); Cholesterol 112 mg/dL (200); Creatinine, Serum 0.56 mg/dL (0.55-1.02); EST Glomerular Filtration Rate 115 mL/min (>60); Est Glom Filt Rate - Afr Amer 139 mL/min (>60); Glucose 114 mg/dL (74-106); High Density Lipoprotein 40 mg/dL; Potassium 3.3 mmol/L (3.5-5.1); Sodium Level 140 mmol/L (136-145); Thyroid Stim Hormone (TSH) 0.48 uIU/mL (0.358-3.74); Triglycerides 90 mg/dL; Very Low Density Lipoprotein 18 mg/dL (5-40)
[2023-06-13 07:32] LABS: Hemoglobin A1c 5.2 % (3.8-5.6)
--- NOTE | 2023-06-13 09:00 | MRI_ITS ---
STUDY: MRI BRAIN WITHOUT CONTRAST REASON FOR EXAM: Female, 68 years old. acute stroke with aphasia TECHNIQUE: Standardized multiplanar fat and water weighted pulse sequences were obtained. COMPARISON: CT of the brain June 12, 2023 FINDINGS: Normal size of the ventricles and extra-axial spaces for the patient''s age. Moderate periventricular white matter ischemic changes.. There is restricted diffusion in the left parietal lobe in distribution of middle cerebral artery and as well as the anterior frontal lobe in distribution of anterior communicating artery. Normal bilateral basal ganglia. Normal thalami. There is no extra-axial fluid accumulation. Normal flow voids within the major intracranial circulation suggesting patency by spin echo criteria. Normal sella turcica, pituitary gland, infundibular stalk, optic chiasm and hypothalamus. Normal tectal plate and pineal gland. Normal midbrain, pipo and medulla. Normal cerebellum. Normal basal cisterns. Normal bilateral temporal bones. Normal bilateral internal auditory canals. No demonstrated orbital abnormality, within the constraints of a routine brain study. Normal visualized paranasal sinuses. Normal calvarium and skull base. Normal visualized soft tissue structures. Normal visualized upper cervical spine. MRI/Brain without Contrast IMPRESSION: Moderate periventricular white matter ischemic changes. Acute left posterior parietal and left anterior frontal lobe ischemic infarction N.B. : The above Results were Read Back by Eduardo Blunt MD to Max Napoles MD, and understanding confirmed on 06/13/2023 16:29:10 (ET). Electronically Signed: Eduardo Blunt MD at 16:31 EST ,
[2023-06-13] MEDS: Aspirin 81 MG TAB.CHEW PO (09:02)
--- NOTE | 2023-06-13 10:32 | ECHOD_ITS ---
Reason For Study: TIA/CVA Procedure This was a 2D Doppler, Color Flow transthoracic echocardiogram. Exam performed portable in patient room. Left Ventricle Normal LV size. The estimated ejection fraction is 65 %. No evidence for diastolic dysfunction. No regional wall motion abnormalities noted. Right Ventricle Normal RV size. Normal systolic function. Atria Normal left atrium. Normal right atrium. No doppler evidence for ASD. Bubble contrast study negative for right to left interatrial shunt. Mitral Valve There is no mitral valve stenosis. No mitral valve insufficiency. Tricuspid Valve There is no tricuspid stenosis. Unable to estimate RV systolic pressure due to inadequate jet, pulmonary artery pressure probably normal. Aortic Valve Trisinus/trileaflet aortic valve. There is no aortic stenosis. No aortic valve insufficiency. Pulmonic Valve There is no pulmonic valvular stenosis. No pulmonic valve insufficiency. Great Vessels Normal aortic root. Pericardium/Pleural No pericardial effusion. Medication Performed a rapid injection of agitated mix of 9 cc saline and 1cc air to assess for atrial septal defect. MMode/2D Measurements & Calculations LVIDd: 4.7 cm IVSd: 1.0 cm Ao root diam: 3.0 cm LVIDs: 3.5 cm LVPWd: 0.92 cm RVDd: 2.9 cm FS: 26.5 % LAV(MOD-bp): 51.7 ml LVAd ap4: 26.8 cm2 LVAd ap2: 23.7 cm2 LAV(MOD-bp) Indexed: 26.9 ml/m2 LVLd ap4: 7.7 cm LVLd ap2: 7.5 cm LAV(MOD-sp2): 50.1 ml EDV(MOD-sp4): 77.2 ml EDV(MOD-sp2): 63.1 ml LAV(MOD-sp4): 44.5 ml EDV(sp4-el): 79.3 ml EDV(sp2-el): 63.4 ml LVAs ap4: 14.7 cm2 LVAs ap2: 12.5 cm2 LVLs ap4: 6.2 cm LVLs ap2: 6.2 cm ESV(MOD-sp4): 31.3 ml ESV(MOD-sp2): 23.8 ml ESV(sp4-el): 29.3 ml ESV(sp2-el): 21.3 ml EF(MOD-sp4): 59.4 % EF(MOD-sp2): 62.4 % EF(sp4-el): 63.0 % SV(MOD-sp4): 45.9 ml SV(MOD-sp2): 39.4 ml SV(sp4-el): 49.9 ml LA A4 area: 15.9 cm2 LA dimension(2D): 3.8 cm RA A4 area: 10.9 cm2 TAPSE: 2.5 cm Time Measurements MV dec time: 0.24 sec Doppler Measurements & Calculations MV E max orestes: 83.6 cm/sec Lat Peak E' Orestes: 8.5 cm/sec Med Peak E' Orestes: 7.4 cm/sec MV A max orestes: 108.6 cm/sec E/E' lat: 9.9 E/E' med: 11.3 MV E/A: 0.77 MV V2 max: 123.4 cm/sec MV P1/2t max orestes: 87.0 cm/sec Ao V2 max: 186.6 cm/sec MV max P.1 mmHg MV P1/2t: 66.6 msec Ao max P.9 mmHg MV V2 mean: 72.4 cm/sec Ao V2 mean: 127.0 cm/sec MV mean P.4 mmHg MV dec slope: 382.4 cm/sec2 Ao mean P.3 mmHg MV V2 VTI: 28.5 cm MVA(P1/2t): 3.3 cm2 Ao V2 VTI: 41.1 cm AV (velocity ratio): 0.58 LV V1 max: 107.7 cm/sec PA V2 max: 123.3 cm/sec LV V1 max P.6 mmHg PA V2 mean: 81.5 cm/sec LV V1 mean P.6 mmHg LV V1 mean: 76.3 cm/sec LV V1 VTI: 23.9 cm ECHO/Echo Complete Interpretation Summary The estimated ejection fraction is 65 %. No evidence for diastolic dysfunction. Ordering Physician: Kavita Holland Referring Physician: NO PCP Performed By: Magalis Kaiser, NIXON, RVT
[2023-06-13 11:59] LABS: Bedside Glucose 139 mg/dL (74-106)
--- NOTE | 2023-06-13 12:40 | CASEMGMT ---
RN CM called sister for initial transition planning/care coordination assessment as patient is having trouble formulating words correctly. RN SPRING introduced self and role at [facility]. Sister willing to participate in assessment and is able to answer all questions appropriately. Care providers, pharmacy, and demographics verified. Sister wishes for patient to discharge home. Discussed need for outpatient speech therapy at discharge. Sister states she has no further needs or concerns at this time. CM to follow for discharge planning needs that may arise. PCP: No PCP, SPRING to provide list Specialists: Per sister patient sees Pain Specialist 3 hours away. Preferred Pharmacy: [facility] Insurance: [facility] Dual Prescription Benefit: yes Living Will/HPOA: none LNOK: son (in long-term), sister Living Arrangements: patient lives alone in a 2 story home with bed and bath on first floor, 3 steps and railing. Patient states she is independent at home. Transportation: self, sister DME/HHC: Patient has no DME in the home. No previous HHC or SNF. Per sister patient has history of drug use. Disposition Plan: Patient to discharge home with outpatient ST, family support and follow-up plans in place. Margaret SANCHEZ, RN, CM
--- NOTE | 2023-06-13 13:52 | NEURO.CONS ---
Assessment and Plan: Neuro Assessment/Plan JOSE MOY is a 68 F with a past medical history of IBS being evaluated by Teleneurology for acute stroke Diagnosis:acute stroke Plan: Start ASA 81 mg daily, cont high intensity statin, MRI w.o cont PT/OT, speech therapy I personally attended this patient and spent a total time of minutes evaluating this patient including clinical assessment, review of chart, medical history imaging, and determining appropriate treatment and workup. HPI Consult Data Date of Consult: 06/13/23 HPI Narrative HPI Narrative: JOSE MOY, is a 68 F who presents with difficulty talking, she reports acute onset words finding difficulties. stroke code was activated, CT head and CTA with no acute finding [facility] Medical History IBS (irritable bowel syndrome) Home Medications lisinopril 40 mg tablet 10 mg PO DAILY 08/16/20 [History Last Taken 08/16/20] oxycodone 15 mg tablet,crush resistant,extended release 12 hr 15 mg PO Q8H 08/16/20 [History Last Taken 08/15/20] doxycycline monohydrate 100 mg capsule 100 mg PO BID #20 CAPSULES 06/29/22 [Rx Last Taken Unknown] lansoprazole 30 mg capsule,delayed release (Prevacid) 30 mg PO DAILY 06/29/22 [History Last Taken Unknown] Allergy/AdvReac Type Severity Reaction Status Date / Time No Known Allergies Allergy Verified 06/12/23 11:59 Social History Smoking Status: Current every day smoker tobacco type: cigarettes Vital Signs Vital Signs Vital Signs: 06/12/23 16:07 06/12/23 17:36 06/12/23 17:53 Temperature 98 F Temperature Source Oral Pulse Rate 77 83 Pulse Strength Respiratory Rate 12 18 Respiratory Effort Respiratory Depth Respiratory Pattern Blood Pressure 191/98 H 193/93 H Blood Pressure Mean 129 126 Blood Pressure Source Monitor Blood Pressure Position Semi-Fowlers Blood Pressure Location Left Arm Pulse Ox 95 96 96 Oxygen Delivery Method Room Air Room Air Room Air 06/12/23 18:00 06/12/23 19:30 06/12/23 19:30 Temperature Temperature Source Pulse Rate Pulse Strength Normal (2+) Respiratory Rate Respiratory Effort Normal Non-Labored Normal Non-Labored Respiratory Depth Normal Normal Respiratory Pattern Normal Normal Blood Pressure Blood Pressure Mean Blood Pressure Source Blood Pressure Position Blood Pressure Location Pulse Ox Oxygen Delivery Method Room Air Room Air 06/12/23 20:30 06/12/23 20:26 06/13/23 00:45 Temperature 98.2 F 98.0 F Temperature Source Oral Oral Pulse Rate 85 94 Pulse Strength Respiratory Rate 18 18 Respiratory Effort Respiratory Depth Respiratory Pattern Blood Pressure 190/72 H 159/84 H Blood Pressure Mean 111 109 Blood Pressure Source Monitor Monitor Blood Pressure Position Supine Semi-Fowlers Blood Pressure Location Right Forearm Right Arm Pulse Ox 96 96 94 Oxygen Delivery Method Room Air Room Air Room Air 06/13/23 00:45 06/13/23 04:45 06/13/23 06:58 Temperature 97.4 F L Temperature Source Temporal Pulse Rate 83 Pulse Strength Respiratory Rate 16 Respiratory Effort Normal Non-Labored Respiratory Depth Normal Respiratory Pattern Normal Blood Pressure 133/96 H Blood Pressure Mean 108 Blood Pressure Source Blood Pressure Position Blood Pressure Location Pulse Ox 95 95 Oxygen Delivery Method Room Air Room Air Room Air 06/13/23 08:48 06/13/23 08:45 06/13/23 08:45 Temperature 97.9 F 97.9 F Temperature Source Oral Oral Pulse Rate 83 83 Pulse Strength Respiratory Rate 16 16 Respiratory Effort Normal Non-Labored Respiratory Depth Normal Respiratory Pattern Normal Blood Pressure 193/83 H 193/83 H Blood Pressure Mean 119 119 Blood Pressure Source Monitor Monitor Blood Pressure Position Semi-Fowlers Semi-Fowlers Blood Pressure Location Left Forearm Left Forearm Pulse Ox 95 95 Oxygen Delivery Method Room Air Room Air Room Air 06/13/23 12:10 06/13/23 12:10 Temperature 98.4 F 98.4 F Temperature Source Oral Oral Pulse Rate 84 84 Pulse Strength Respiratory Rate 16 16 Respiratory Effort Respiratory Depth Respiratory Pattern Blood Pressure 181/85 H 181/85 H Blood Pressure Mean 117 117 Blood Pressure Source Monitor Monitor Blood Pressure Position Semi-Fowlers Semi-Fowlers Blood Pressure Location Left Forearm Left Forearm Pulse Ox 94 94 Oxygen Delivery Method Room Air Room Air Weight Weight: 85.1 kg Body Mass Index (BMI) 31.2 EEG Results Procedure Details EEG Procedure Details: JOSE MOY is a 68 year old F with a past medical history of , who presents for evaluation of Electroencephalogram on DATE at TIME NIHSS NIHSS Nursing Documentation NIHSS Nursing Documentation: NIHSS: Ischemic Stroke/TIA Start: 06/12/23 17:31 Text: For PCU Patients: NIH and Neuro Check every 4 Status: Active hours and PRN Freq: [id number] Protocol: Activity Type Activity Date Activity User E-sign Co-sign Detail Recorded Client Recorded Date Recorded By Document 06/13/23 12:10 MS Desktop 06/13/23 12:25 MS 06/13/23 12:10 NIH Stroke Scale [NIHSS] A score of 0 is normal or asymptomatic . Total possible score is 42. Inpatient: RN or Physician to activate a stroke alert for onset of new stroke symptoms or with NIHSS increase >/= 3 points. Following change in neurological status, NIHSS will be performed per physician order or more frequently PRN. -1a. Level of Consciousness Alert; keenly responsive -1b. LOC Questions Answers neither question correctly. -1c. LOC Commands Performs both tasks correctly . -2. Best Gaze Normal -3. Visual No visual loss -4. Facial Palsy Normal symmetrical movements -5a. Left Arm No drift; arm holds 90 (or 45 ) degrees for full 10 seconds -5b. Right Arm No drift; arm holds 90 (or 45 ) degrees for full 10 seconds -6a. Left Leg No drift; leg holds 30-degree position for full 5 seconds -6b. Right Leg No drift; leg holds 30-degree position for full 5 seconds -7. Limb Ataxia Absent -8. Sensory Normal; no sensory loss -9. Best Language Severe aphasia; -10. Dysarthria Mild-to- moderate dysarthria; -11. Extinction and Inattention No abnormality -Total 5 Query Text:A score of 0 is normal or asymptomatic. Total possible score is 42 . ED: Notify Physician for NIHSS increase by > / = 3 points. Inpatient: RN or Physician to activate a stroke alert for NIHSS increase of > / = 3 points. Coma Scale [Assess] -Eye Opening Spontaneous -Motor Obeys Commands -Verbal None [Total] -Coma Scale Total 11 NIHSS 1a. Level of Consciousness: Alert; keenly responsive 1b. LOC Questions: Answers one question correctly. 1c. LOC Commands: Performs both tasks correctly. 2. Best Gaze: Normal 3. Visual: No visual loss 4. Facial Palsy: Normal symmetrical movements 5a. Left Arm: No drift; arm holds 90 (or 45) degrees for full 10 seconds 5b. Right Arm: No drift; arm holds 90 (or 45) degrees for full 10 seconds 6a. Left Leg: No drift; leg holds 30-degree position for full 5 seconds 6b. Right Leg: No drift; leg holds 30-degree position for full 5 seconds 7. Limb Ataxia: Absent 8. Sensory: Normal; no sensory loss 9. Best Language: Afld-wk-iauvslio aphasia; Total: 2 Stroke Questions Stroke Team Activated: Yes Was Patient considered for Endovascular Intervention?: No IV Thrombolytic Administered: No Physical Exam Neuro Other: awake alert able to say one/two words, expressive aphasia, no drift Lab / Micro Data 06/13/23 06:00 06/13/23 06:00 Labs: Laboratory Results - last 24 hr 06/12/23 12:05: Phosphorus 3.0, Magnesium 2.3 06/12/23 21:25: POC Glucose 105 06/13/23 06:00: WBC 6.2, RBC 4.63, Hgb 14.5, Hct 45.5, MCV 98.3, MCH 31.3, MCHC 31.9 L, RDW Std Deviation 45.5 H, RDW Coeff of Harish 12.6, Plt Count 270, MPV 10.9, Immature Gran % (Auto) 0.300, Neut % (Auto) 60.4, Lymph % (Auto) 29.3, [place] % (Auto) 7.5, Eos % (Auto) 1.8, Baso % (Auto) 0.7, Absolute Neuts (auto) 3.7, Absolute Lymphs (auto) 1.80, Nucleated RBC % 0, Sodium 140, Potassium 3.3 L, Chloride 105, Carbon Dioxide 30.0, Anion Gap 5, BUN 5 L, Creatinine 0.56, Estim Creat Clear Calc 49.80, Est GFR (MDRD) Af Amer 139, Est GFR (MDRD) Non-Af 115, BUN/Creatinine Ratio 8.9 L, Glucose 114 H, Hemoglobin A1c 5.2, Calcium 8.7, Triglycerides 90, Cholesterol 112, LDL Cholesterol 54, VLDL Cholesterol 18, HDL Cholesterol 40, TSH 0.48 06/13/23 06:23: POC Glucose 118 H 06/13/23 11:26: POC Glucose 139 H Active Medications Active Medications Active Medications: Current Medications Generic Name Dose Route Start Last Admin Trade Name Freq PRN Reason Stop Dose Admin Acetaminophen 650 mg 06/12/23 17:31 Acetaminophen 325 Mg Tablet PO Q6H PRN PRN Pain 1-10 Or Fever>100.7 Aspirin 81 mg 06/13/23 08:00 06/13/23 09:02 Aspirin 81 Mg Tab.Chew PO 81 mg BREAKFAST CHEPE Administration Atorvastatin Calcium 80 mg 06/12/23 22:00 06/12/23 20:31 Atorvastatin Calcium 80 Mg Tablet PO 80 mg QHS CHEPE Administration Enoxaparin Sodium 40 mg 06/12/23 20:00 06/12/23 20:32 Enoxaparin 40 Mg/0.4 Ml Syringe SC 40 mg Q24H CHEPE Administration Hydralazine HCl 5 mg 06/12/23 17:31 Hydralazine 20 Mg/Ml Vial IV Q30M PRN to maintain BP goals Potassium Chloride 40 meq/ 1,020 mls @ 50 mls/hr 06/12/23 17:31 06/12/23 18:53 Dextrose/Sodium Chloride IV 50 mls/hr .[id number] CHEPE Administration Sodium Chloride 250 mls @ 15 mls/hr 06/12/23 17:41 IV .[id number] PRN Saline Flush Sodium Chloride 250 mls @ 15 mls/hr 06/12/23 17:41 IV .[id number] PRN Additional IVPB Infusion Labetalol HCl 10 - 20 mg 06/12/23 17:31 Labetalol (Prefilled) 20 Mg/4 Ml IV Q10M PRN PRN to Maintain BP Goals Sodium Chloride 10 - 40 ml 06/12/23 17:41 06/12/23 18:53 0.9% Saline Lock 10 Ml Syringe IV 10 ml UD PRN Administration SALINE FLUSH
[2023-06-13] MEDS: LORazepam 2 MG/ML Syringe 0.5 MG IV (15:10)
[2023-06-13] MEDS: 0.9% Saline Lock 10 ML Syringe IV ×2 (15:10→17:04)
[2023-06-13] MEDS: Potassium Chloride 40 MEQ in Dext 5%-0.45% NS 1,000 ML 50 MEQ IV (17:04)
[2023-06-13 17:41] LABS: Bedside Glucose 107 mg/dL (74-106)
--- NOTE | 2023-06-13 17:44 | PN.HOSP_ITS ---
Reason for Visit Reason for Visit: Expressive aphasia Subjective Subjective Mrs. Hall is a 68-year-old white female who presents emergency department at [facility] on 06/12/2023 due to expressive aphasia. Upon presentation the patient was unable to express herself at all and had difficulty finding words. It is documented she had moderate language deficits. Initially she was not able to understand communicated language at all however at this time aphasia seems to be all expressive with no significant receptive aphasia. She was unable to give any history and presentation. Stroke alert was called and she was evaluated at [facility] stroke teleneurologist. She was not a thrombolytic candidate due to unclear window presentation. Patient does admit to tobacco abuse with everyday smoking. Initial CT of the brain was unremarkable. CTA of the head and neck showed no evidence of vaso-occlusive disease stenosis or aneurysm/vascular malformation. She was admitted to the PCU for further workup for stroke. An MRI was performed today and is positive for acute infarct. MRI demonstrated moderate very ventricular white matter ischemic changes as well as an acute left posterior parietal and left anterior frontal lobe ischemic infarction. Echocardiogram showed an EF of 65% with no evidence of diastolic dysfunction and a negative bubble study. Neurology reevaluated the patient prior to her MRI being performed and they recommended continuing her aspirin and high-dose statin. Patient has had no significant issues overnight other than ongoing hypertension and we are allowing for permissive hypertension this fall due to the above. Patient does seem to have significant expressive aphasia however her receptive language seems to be quite intact at this time. Objective Data Objective Data Vital Signs: Vital Signs Temp Pulse Resp BP Pulse Ox O2 Del Method 97.9 F 78 16 168/74 H 97 Room Air 06/13/23 16:52 06/13/23 16:52 06/13/23 16:52 06/13/23 16:52 06/13/23 16:52 06/13/23 16:52 Oxygen Delivery Method Room Air Weight: 85.1 kg Body Mass Index (BMI) 31.2 Intake & Output: Intake and Output for Last 24 Hours 06/11/23 06/12/23 06/13/23 23:59 23:59 23:59 Intake Total 220 / 220 2260 / 2260 Balance 220 / 220 2260 / 2260 Lab / Micro Data 06/13/23 06:00 06/13/23 06:00 Labs: Laboratory Results - last 24 hr 06/12/23 21:25: POC Glucose 105 06/13/23 06:00: WBC 6.2, RBC 4.63, Hgb 14.5, Hct 45.5, MCV 98.3, MCH 31.3, MCHC 31.9 L, RDW Std Deviation 45.5 H, RDW Coeff of Harish 12.6, Plt Count 270, MPV 10.9, Immature Gran % (Auto) 0.300, Neut % (Auto) 60.4, Lymph % (Auto) 29.3, [place] % (Auto) 7.5, Eos % (Auto) 1.8, Baso % (Auto) 0.7, Absolute Neuts (auto) 3.7, Absolute Lymphs (auto) 1.80, Nucleated RBC % 0, Sodium 140, Potassium 3.3 L , Chloride 105, Carbon Dioxide 30.0, Anion Gap 5, BUN 5 L, Creatinine 0.56, Estim Creat Clear Calc 49.80, Est GFR (MDRD) Af Amer 139, Est GFR (MDRD) Non-Af 115, BUN/Creatinine Ratio 8.9 L, Glucose 114 H, Hemoglobin A1c 5.2, Calcium 8.7, Triglycerides 90, Cholesterol 112, LDL Cholesterol 54, VLDL Cholesterol 18, HDL Cholesterol 40, TSH 0.48 06/13/23 06:23: POC Glucose 118 H 06/13/23 11:26: POC Glucose 139 H 06/13/23 17:15: POC Glucose 107 H Radiography Diagnostic Testing: Radiology Impression Brain MRI 06/13/23 09:00 IMPRESSION: Moderate periventricular white matter ischemic changes. Acute left posterior parietal and left anterior frontal lobe ischemic infarction N.B. : The above Results were Read Back by Eduardo Blunt MD to Max Napoles MD, and understanding confirmed on 06/13/2023 16:29:10 (ET). Electronically Signed: Eduardo Blunt MD at 16:31 EST , ADDENDUM: 06/13/23 8710 IMPRESSION: Moderate periventricular white matter ischemic changes. Acute left posterior parietal and left anterior frontal lobe ischemic infarction N.B. : The above Results were Read Back by Eduardo Blunt MD to Max Napoles MD, and understanding confirmed on 06/13/2023 16:29:10 (ET). Electronically Signed: Eduardo Blunt MD at 16:31 EST Reading Location ID and State: [address] [place] [address] Tel , Service support , Physical Exam Const alert, no apparent distress and well nourished; Negative for average body habitus or healthy appearing Constitutional Narrative: Obese, upper middle-aged, white female who appears older than stated age, lying in bed and nursing at bedside, patient appears comfortable and nontoxic at this time, follows all commands but has difficulty expressing herself HEENT head/scalp atraumatic and moist oral mucous membranes HEENT Narrative: Edentulous, Mallampati 2, no thrush Head and Scalp: normocephalic Resp normal respiratory effort, no retractions, no use of accessory muscles and clear to auscultation bilaterally Resp Narrative: Diffusely diminished but clear Auscultation: Negative for rales, rhonchi or wheezes Cardio regular rate, regular rhythm, S1 normal heart sound, S2 normal heart sound, no murmurs, no rub, no gallops and no clicks GI normal to inspection, nondistended, normoactive bowel sounds, soft to palpation and non-tender Extremity no clubbing, cyanosis or edema Extremity Narrative: Pedal pulses are 2+ Skin Skin Narrative: No significant lesions noted Neuro CN's II-XII intact bilaterally, moves all extremities, no focal motor deficits and no sensory deficits noted Neuro Narrative: Follows all commands but has significant expressive aphasia Speech: Negative for speech normal Psych affect normal Psych Narrative: Patient is calm and pleasant Assessment & Plan Assessment/Plan (1) Acute stroke due to ischemia: (2) Expressive aphasia: (3) Hypertension: PLAN: Plan Ischemia stroke of left posterior parietal and left anterior frontal lobe -Continue to monitor on telemetry -MRI is consistent with acute stroke -Check CHARISMA given the fact that it is more than 1 territory of infarct -Surface echo shows a normal EF at 65% and a negative bubble study -Continue aspirin and add Plavix -Will need to add full anticoagulation if any evidence of A-fib is present -Continue high intensity dose statin -Will still allow for permissive hypertension -A1c is unremarkable -Speech therapy consultation -PT/OT following -Will likely need event monitor at discharge if no arrhythmia found prior to discharge -Neurology is following-appreciate input Hypertension -Blood pressure remains elevated -Will continue to allow for permissive hypertension given acute stroke on admission Expressive aphasia -Speech therapy is following -Will likely need outpatient speech therapy after discharge -Patient is on appear diet will discontinue IV fluids Tobacco abuse -Recommend cessation -Nicotine patch available Obesity -BMI 31.2 -Complicates treatment, prognosis, outcomes -Recommend weight loss DVT prophylaxis -Continue subcu enoxaparin CODE STATUS -Documented as full however unverified Charges/Coding Visit Charges Inpatient E&M: 36666 Subs Hosp L2
--- NOTE | 2023-06-13 17:53 | ECHOTEE_ITS ---
Version 2 Reason For Study: CVA Medication CHARISMA probe 6VT-D (SN [id number]) passed with minimal difficulty. No complications were noted. [id number] gargled and swallowed. Cetacaine Topical [place] given X4 orally. Versed 1 mg given slow IVP. Fentanyl 50 mcg given slow IVP. Performed a rapid injection of agitated mix of 9 cc saline and 1cc air to assess for atrial septal defect. Left Ventricle Normal LV size. The estimated ejection fraction is 65 %. Atria Bubble contrast study negative for right to left interatrial shunt. No thrombus is detected in the left atrial appendage. Mitral Valve There is no mitral valve stenosis. Aortic Valve Trisinus/trileaflet aortic valve. There is no aortic stenosis. ECHO/Echo Transesophageal (CHARISMA) Interpretation Summary Limited study was performed to look for intracardiac source for emboli. The estimated ejection fraction is 65 %. No thrombus is detected in the left atrial appendage. Bubble contrast study negative for right to left interatrial shunt. Ordering Physician: Kavita Holland Performed By: Eugenio Gates RCS
[2023-06-13] MEDS: Potassium Chloride Oral Soln 20 MEQ/15 ML UDC 40 MEQ PO (19:10)
[2023-06-13] MEDS: Clopidogrel Bisulfate 75 MG Tablet PO (19:10)
[2023-06-13] MEDS: Enoxaparin 40 MG/0.4 ML Syringe SC (19:58)
[2023-06-13] MEDS: Atorvastatin Calcium 80 MG Tablet PO (19:58)
[2023-06-13 22:43] LABS: Bedside Glucose 127 mg/dL (74-106)
[2023-06-14] VITALS (8 sets, daily range): BP systolic 161–186; BP diastolic 75–99; PULSE 72–87; RESP 16–18; TEMP 36.2–37; O2SAT 94–100; BMI 31.2; BMI 31.0
[2023-06-14 06:37] LABS: Bedside Glucose 128 mg/dL (74-106)
[2023-06-14 07:26] LABS: Anion Gap 3 (5-15); BUN 3 mg/dL (7-18); Calcium,Total 9.3 mg/dL (8.5-10.1); Chloride 107 mmol/L (98-107); EST Glomerular Filtration Rate 106 mL/min (>60); Est Glom Filt Rate - Afr Amer 128 mL/min (>60); Glucose 122 mg/dL (74-106); Magnesium 2.3 mg/dL (1.6-2.6); Potassium 3.5 mmol/L (3.5-5.1); Sodium Level 140 mmol/L (136-145)
[2023-06-14] MEDS: Clopidogrel Bisulfate 75 MG Tablet PO (08:07)
[2023-06-14] MEDS: Aspirin 81 MG TAB.CHEW PO (08:07)
--- NOTE | 2023-06-14 09:49 | CASEMGMT ---
SW completed a PHQ9 with patient as she had a Stroke. Patient scored a 0 which indicates no depression. Ursula RICKS
[2023-06-14] MEDS: Pantoprazole Sodium 40 MG Tablet PO (10:44)
[2023-06-14] MEDS: Lisinopril 10 MG Tablet PO (10:44)
[2023-06-14 11:10] LABS: Bedside Glucose 117 mg/dL (74-106)
--- NOTE | 2023-06-14 12:42 | NEURO.PNOTE ---
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 NIHSS NIHSS Nursing Documentation NIHSS Nursing Documentation: NIHSS: Ischemic Stroke/TIA Start: 06/12/23 17:31 Text: For PCU Patients: NIH and Neuro Check every 4 Status: Active hours and PRN Freq: [id number] Protocol: Activity Type Activity Date Activity User E-sign Co-sign Detail Recorded Client Recorded Date Recorded By Document 06/14/23 11:54 MS Desktop 06/14/23 12:11 MS 06/14/23 11:54 NIH Stroke Scale [NIHSS] A score of 0 is normal or asymptomatic . Total possible score is 42. Inpatient: RN or Physician to activate a stroke alert for onset of new stroke symptoms or with NIHSS increase >/= 3 points. Following change in neurological status, NIHSS will be performed per physician order or more frequently PRN. -1a. Level of Consciousness Alert; keenly responsive -1b. LOC Questions Answers neither question correctly. -1c. LOC Commands Performs both tasks correctly . -2. Best Gaze Normal -3. Visual No visual loss -4. Facial Palsy Normal symmetrical movements -5a. Left Arm No drift; arm holds 90 (or 45 ) degrees for full 10 seconds -5b. Right Arm No drift; arm holds 90 (or 45 ) degrees for full 10 seconds -6a. Left Leg No drift; leg holds 30-degree position for full 5 seconds -6b. Right Leg No drift; leg holds 30-degree position for full 5 seconds -7. Limb Ataxia Absent -8. Sensory Normal; no sensory loss -9. Best Language Mild-to- moderate aphasia; -10. Dysarthria Mild-to- moderate dysarthria; -11. Extinction and Inattention No abnormality -Total 4 Query Text:A score of 0 is normal or asymptomatic. Total possible score is 42 . ED: Notify Physician for NIHSS increase by > / = 3 points. Inpatient: RN or Physician to activate a stroke alert for NIHSS increase of > / = 3 points. Coma Scale [Assess] -Eye Opening Spontaneous -Motor Obeys Commands -Verbal None [Total] -Coma Scale Total 11 EEG Results Procedure Details EEG Procedure Details: JOSE MOY is a 68 year old F with a past medical history of , who presents for evaluation of Electroencephalogram on DATE at TIME Objective Data Objective Data Vital Signs: Vital Signs Temp Pulse Resp BP Pulse Ox O2 Del Method 98.0 F 86 16 182/93 H 100 Room Air 06/14/23 11:54 06/14/23 11:54 06/14/23 11:54 06/14/23 11:54 06/14/23 11:54 06/14/23 11:54 Oxygen Delivery Method Room Air Weight: 84.7 kg Body Mass Index (BMI) 31.0 Intake & Output: Intake and Output for Last 24 Hours 06/12/23 06/13/23 06/14/23 23:59 23:59 23:59 Intake Total 220 / 220 2305.83 / 2605.83 300 / 300 Balance 220 / 220 2305.83 / 2605.83 300 / 300 Lab / Micro Data 06/13/23 06:00 06/14/23 06:35 Labs: Laboratory Results - last 24 hr 06/13/23 17:15: POC Glucose 107 H 06/13/23 21:15: POC Glucose 127 H 06/14/23 06:18: POC Glucose 128 H 06/14/23 06:35: Sodium 140, Potassium 3.5, Chloride 107, Carbon Dioxide 30.0, Anion Gap 3 L, BUN 3 L, Creatinine 0.60, Estim Creat Clear Calc 49.80, Est GFR (MDRD) Af Amer 128, Est GFR (MDRD) Non-Af 106, BUN/Creatinine Ratio 5.0 L, Glucose 122 H, Calcium 9.3, Magnesium 2.3 06/14/23 10:50: POC Glucose 117 H Radiography Diagnostic Testing: Radiology Impression Brain MRI 06/13/23 09:00 IMPRESSION: Moderate periventricular white matter ischemic changes. Acute left posterior parietal and left anterior frontal lobe ischemic infarction N.B. : The above Results were Read Back by Eduardo Blunt MD to Max Napoles MD, and understanding confirmed on 06/13/2023 16:29:10 (ET). Electronically Signed: Eduardo Blunt MD at 16:31 EST , ADDENDUM: 06/13/23 1637 IMPRESSION: Moderate periventricular white matter ischemic changes. Acute left posterior parietal and left anterior frontal lobe ischemic infarction N.B. : The above Results were Read Back by Eduardo Blunt MD to Max Napoles MD, and understanding confirmed on 06/13/2023 16:29:10 (ET). Electronically Signed: Eduardo Blunt MD at 16:31 EST , ADDENDUM: 06/13/23 1802 IMPRESSION: Moderate periventricular white matter ischemic changes. Acute left posterior parietal and left anterior frontal lobe ischemic infarction N.B. : The above Results were Read Back by Eduardo Blunt MD to Maribel Holland MD, and understanding confirmed on 06/13/2023 17:55:52 (ET). Electronically Signed: Eduardo Blunt MD at 16:31 EST , Echocardiogram 06/13/23 10:32 Interpretation Summary The estimated ejection fraction is 65 %. No evidence for diastolic dysfunction. Ordering Physician: Kavita Holland Referring Physician: NO PCP Performed By: Magalis Kaiser, NIXON, RVT Physical Exam Narrative she is awake alert with expressie aphasia able to say her name but not able to name or repeat.she can follow 1-2 steps commands face symmtric no focal weakness (Exam was done through tele with the nurse workforce development assistant)
--- NOTE | 2023-06-14 15:45 | CASEMGMT ---
Patient to discharge with outpatient speech therapy. WILLOW LONDONO received script. WILLOW LONDONO in to discuss needs at discharge. Patient having struggling with expressive aphagia. Patient prefers [facility] for outpatient ST and would like WILLOW LONDONO to schedule appointment. WILLOW LONDONO asked embossing unit operator to schedule follow-up appt with Hannah Sykes and Dr Moreau. WILLOW LONDONO called [facility] and appointment scheduled for tomorrow at 1:30pm. IWLLOW LONDONO called sister, family answered and states she is at hospital. WILLOW LONDONO updated hospitalist regarding outpatient ST setup. WILLOW LONDONO in to room with patient and sister. Sister voiced understanding and had no further questions or concerns at this time. WILLOW LONDONO added appointment for ST to discharge plan.
--- NOTE | 2023-06-14 16:01 | DS.PCM_ITS ---
Providers Date of Admission: 06/12/23 Date of Discharge: 06/14/23 Primary Care Physician: Marie Primary Care Phys Consultations 06/12/23 17:31 Consult: Tele-Neurology Routine Consulting Provider: [facility] Reason for Consult: Acute Ischemic Stroke/TIA EMERGENT Consult: No MD Notified: Yes Date Notified: 06/12/23 Time Notified: 13:48 Method of Notification: ED Physician Initiated Comments:: ED consulted [facility] Tele neurologist Nursing Unit Staff Notify [facility] of Tele-Neurology Consult: Yes Reason For Visit: STROKE, APHASIA Diagnosis Discharge Diagnosis (1) Acute stroke due to ischemia: Status: Acute Code(s): I63.9 - Cerebral infarction, unspecified (2) Expressive aphasia: Status: Acute Code(s): R47.01 - Aphasia (3) Hypertension: Status: Chronic Code(s): I10 - Essential (primary) hypertension Plan Ischemia stroke of left posterior parietal and left anterior frontal lobe -Continue to monitor on telemetry -MRI is consistent with acute stroke -Check CHARISMA given the fact that it is more than 1 territory of infarct -Surface echo shows a normal EF at 65% and a negative bubble study -Continue aspirin and add Plavix -Will need to add full anticoagulation if any evidence of A-fib is present -Continue high intensity dose statin -Will still allow for permissive hypertension -A1c is unremarkable -Speech therapy consultation -PT/OT following -Will likely need event monitor at discharge if no arrhythmia found prior to discharge -Neurology is following-appreciate input Hypertension -Blood pressure remains elevated -Will continue to allow for permissive hypertension given acute stroke on admission Expressive aphasia -Speech therapy is following -Will likely need outpatient speech therapy after discharge -Patient is on appear diet will discontinue IV fluids Tobacco abuse -Recommend cessation -Nicotine patch available Obesity -BMI 31.2 -Complicates treatment, prognosis, outcomes -Recommend weight loss DVT prophylaxis -Continue subcu enoxaparin CODE STATUS -Documented as full however unverified Medications at Discharge Home Medications oxycodone 15 mg tablet,crush resistant,extended release 12 hr 15 mg PO Q8H 08/16/20 doxycycline monohydrate 100 mg capsule 100 mg PO BID infection #20 CAPSULES 06/29/22 lansoprazole 30 mg capsule,delayed release (Prevacid) 30 mg PO DAILY reflux 06/29/22 amlodipine 5 mg tablet 10 mg (2 x 5 mg) PO DAILY #60 tabs 12/12/23 aspirin 81 mg chewable tablet 81 mg PO BREAKFAST #0 tabs 06/14/23 atorvastatin 80 mg tablet 80 mg PO QHS #30 tabs 06/14/23 lisinopril 40 mg tablet 40 mg PO DAILY #30 tabs 06/14/23 Hospital Course Summary of Care Provided Minutes Spent on Discharge: 40 Hospital Course: Mrs. Hall is a 68-year-old white female who presented emergency department at [facility] on 06/12/2023 due to expressive aphasia. Upon presentation, the patient was unable to express herself at all and had difficulty finding words. It is documented she had moderate language deficits. Initially, she was not able to understand communicated language at all however with time aphasia her aphasia progressed to being all expressive with no significant receptive aphasia. She was unable to give any history and presentation. Stroke alert was called and she was evaluated at [facility] stroke teleneurologist. She was not a thrombolytic candidate due to unclear window of presentation. Patient did admit to tobacco abuse with everyday smoking. Initial CT of the brain was unremarkable. CTA of the head and neck showed no evidence of vaso-occlusive disease stenosis or aneurysm/vascular malformation. She was admitted to the PCU for further workup for stroke. An MRI was performed was positive for acute infarct demonstrating moderate very ventricular white matter ischemic changes as well as an acute left posterior parietal and left anterior frontal lobe ischemic infarction. Echocardiogram showed an EF of 65% with no evidence of diastolic dysfunction and a negative bubble study. Given the fact that the infarct was in multiple areas it was thought that this may be cardioembolic and a CHARISMA was performed CHARISMA was negative for any atrial appendage clot. She will be discharged home with an event monitor to rule out any paroxysmal atrial fibrillation. Neurology evaluated the patient and agreed that this was likely cardioembolic. They recommended that we continue baby aspirin and a statin and that she be followed up as an outpatient with neurology. On day 2 of her hospitalization we did start to more aggressively treat her blood pressure with restarting her home lisinopril but increasing the dose from 20 to 40 mg daily and adding full dose amlodipine at 10 mg. Her blood pressure was improved and systolics were between 140 and 160 at discharge. We have written prescriptions for these 2 antihypertensives and have scheduled close follow-up with the [facility] in [facility] for further assessment. Her A1c was 5.2. Total cholesterol was 112 with an LDL of 54, HDL of 40 and triglycerides were 90. TSH was within normal limits. Goal overall blood pressure will be 130/80 or less. She was seen by physical and Occupational Therapy and has no further needs. She was seen by speech therapy and they recommended ongoing outpatient speech therapy for expressive aphasia. Prescriptions for Norvasc, lisinopril, and atorvastatin were sent to local pharmacy and she was instructed to buy baby aspirin and take this daily. High-dose statin was used for pleiotropic effects. Her sister was present at the time of discharge and we reviewed all of her discharge instructions. They are to call neurology to set up an appointment after discharge. She does not currently follow with the primary care physician so we did set up an appointment for her to be seen at the [facility] prior to discharge. We also arranged for her to be seen by speech therapy at [facility] tomorrow for her initial evaluation appointment. She was able to be discharged home in stable condition on 06/14/2023. Patient was strongly encouraged to stop smoking. Discharge diagnoses: Acute ischemic stroke of the left posterior parietal and left anterior frontal lobe-suspect cardioembolic Hypertension Expressive aphasia Tobacco abuse Obesity Physical Exam Const alert, no apparent distress and well nourished; Negative for average body habitus or healthy appearing Constitutional Narrative: Obese, upper middle-aged, white female who appears older than stated age, sitting up in chair at the bedside, appears comfortable and nontoxic, sister at the bedside, patient with ongoing expressive aphasia however appears a little bit improved in the last 24 hours General Appearance: cooperative, comfortable, well kempt and well developed Orientation / Consciousness: awake, oriented to person and oriented to place Exam Limitations: other limitations Nutritional Appearance: obese HEENT normocephalic, head/scalp atraumatic, hearing grossly normal bilaterally and moist oral mucous membranes HEENT Narrative: Mallampati 2, no thrush, patient is edentulous Eyes PERRL, EOMs intact bilaterally and conjunctivae normal Eyes Narrative: No scleral icterus Neck no lymphadenopathy and supple Neck Narrative: Trachea midline, no thyroid enlargement Resp normal respiratory effort, no retractions, no use of accessory muscles and clear to auscultation bilaterally Resp Narrative: Diffusely diminished but clear Auscultation: Negative for rales, rhonchi or wheezes Cardio regular rate, regular rhythm, S1 normal heart sound, S2 normal heart sound, no murmurs, no rub, no gallops and no clicks GI normal to inspection, nondistended, normoactive bowel sounds, soft to palpation and non-tender Extremity no clubbing, cyanosis or edema Extremity Narrative: Pedal pulses are 2+ Skin no rashes or lesions noted, no wounds, skin turgor normal and no jaundice Skin Narrative: No significant lesions noted Neuro oriented x3, CN's II-XII intact bilaterally, moves all extremities, no focal motor deficits and no sensory deficits noted Neuro Narrative: Follows all commands but has significant expressive aphasia Speech: Negative for speech normal Psych affect normal Psych Narrative: Patient is calm and pleasant Weight / BMI Weight Weight: 84.7 kg Body Mass Index (BMI) 31.0 ABG / Lab / Microbiology Data 06/13/23 06:00 06/14/23 06:35 Laboratory: Laboratory Results - last 24 hr 06/13/23 17:15: POC Glucose 107 H 06/13/23 21:15: POC Glucose 127 H 06/14/23 06:18: POC Glucose 128 H 06/14/23 06:35: Sodium 140, Potassium 3.5, Chloride 107, Carbon Dioxide 30.0, Anion Gap 3 L, BUN 3 L, Creatinine 0.60, Estim Creat Clear Calc 49.80, Est GFR (MDRD) Af Amer 128, Est GFR (MDRD) Non-Af 106, BUN/Creatinine Ratio 5.0 L, Glucose 122 H, Calcium 9.3, Magnesium 2.3 06/14/23 10:50: POC Glucose 117 H Radiography Diagnostic Testing: Radiology Impression Brain MRI 06/13/23 09:00 IMPRESSION: Moderate periventricular white matter ischemic changes. Acute left posterior parietal and left anterior frontal lobe ischemic infarction N.B. : The above Results were Read Back by Eduardo Blunt MD to Max Napoles MD, and understanding confirmed on 06/13/2023 16:29:10 (ET). Electronically Signed: Eduardo Blunt MD at 16:31 EST Reading Location ID and State: [facility] / [place] Tel , Service support , ADDENDUM: 06/13/23 8377 IMPRESSION: Moderate periventricular white matter ischemic changes. Acute left posterior parietal and left anterior frontal lobe ischemic infarction N.B. : The above Results were Read Back by Eduardo Blunt MD to Max Napoles MD, and understanding confirmed on 06/13/2023 16:29:10 (ET). Electronically Signed: Eduardo Blunt MD at 16:31 EST Reading Location ID and State: [facility] / [place] Tel [phone], Service support , ADDENDUM: 06/13/23 1802 IMPRESSION: Moderate periventricular white matter ischemic changes. Acute left posterior parietal and left anterior frontal lobe ischemic infarction N.B. : The above Results were Read Back by Eduardo Blunt MD to Maribel Holland MD, and understanding confirmed on 06/13/2023 17:55:52 (ET). Electronically Signed: Eduardo Blunt MD at 16:31 EST Reading Location ID and State: [facility] / [place] Tel , Service support , Echocardiogram 06/13/23 10:32 Interpretation Summary The estimated ejection fraction is 65 %. No evidence for diastolic dysfunction. Ordering Physician: Kavita Holland Referring Physician: NO PCP Performed By: Magalis Kaiser, EARLINECS, RVT Transesophageal Echocardiogram 06/13/23 17:53 Interpretation Summary Limited study was performed to look for intracardiac source for emboli. The estimated ejection fraction is 65 %. No thrombus is detected in the left atrial appendage. Bubble contrast study negative for right to left interatrial shunt. Ordering Physician: Kavita Holland Performed By: Eugenio Gates RCS D/C Instructions Discharge Diet: Low fat / Low cholesterol Discharge Activity: Return to Normal Activity Meaningful Use Info Meaningful Use Diagnoses (Choose all that apply): Ischemic CVA CVA Therapy Assessed for PT,OT and/or ST?: Yes Ischemic Stroke Antithrombotic order at d/c?: Yes Dx of Atrial fib/flutter?: No Anticoagulant at discharge?: No Reason anticoagulant not ordered: Treatment not Indicated Statins at discharge?: Yes Primary Dx Acute Ischemic CVA?: Yes IV thrombolytic ordered during stay?: No Reason IV thrombolytic not ordered: Treatment not Indicated Discharge Plan Admission Admit Date/Time: 06/12/23 13:46 Primary Reason for Your Visit: Expressive aphasia--> diagnosed with stroke Attending Provider: Kavita Holland Primary Care Provider: Care Physician,No Primary Consulting Providers: Mateo Andrews; Kody Downey; Keena Redman; Yaritza Christianson; Ghazala Tipton; Mayito Juarez; Gracie Fletcher; Son Ca; Efren Odom; Genesis Burgess; Aly Nj; Violeta Joe; Calixto Carrera; Avtar Andrews; Neymar Chung; Oren Law; Manny Fraire; Miriam Holland; Eddie Carlin; Max Napoles Instructions Additional Instructions / Restrictions: 1. Very important for you to keep your follow-up appointments at the [facility] Main clinic and schedule an appointment with the neurologist. 2. It is important that you try to stop smoking. Please discuss this further with your new primary care physician Discharge Orders/Prescriptions Prescriptions: New amlodipine 5 mg Tablet 10 mg PO DAILY Qty: 60 1RF aspirin 81 mg Tablet,Chewable 81 mg PO BREAKFAST Qty: 0 0RF atorvastatin 80 mg Tablet 80 mg PO QHS Qty: 30 1RF Continued oxycodone 15 MG tablet,oral only,ext.rel.12 hr 15 mg PO Q8H lansoprazole [Prevacid] 30 mg capsule,delayed release(DR/EC) 30 mg PO DAILY Patient Comments: TAKE 1 CAPSULE BY MOUTH EVERY DAY doxycycline monohydrate 100 mg capsule 100 mg PO BID Qty: 20 0RF Changed lisinopril 40 MG tablet 40 mg PO DAILY Qty: 30 1RF Other Ambulatory Orders: 30 Day Event Recorder Preventi (Urgent) Timeframe: 1 Day Facility: [facility] - Location: Cardiovascular Services Ordered By: Dr. Kavita Holland Referrals / Follow Up: [facility] [Outside] - 06/15/23 1:15 pm (Speech Therapy evaluation ) Armen Moreau MD [Non-Staff -Ordering Privileges] - Within 1 Month (Please call and set up appt to be seen within 1 month) Care Physician,No Primary [Primary Care Provider] - Disposition Disposition (needs filled in before D/C Order can be placed): Home, Self Care Charges/Coding Visit Charges Inpatient E&M: 06184 Disch Hosp >30min
== END 2023-06-14 16:28 | disposition home or self-care (01) | DRG 66 ==
LOC: ED 13:54 → PCU 14:21
PROVIDERS: Admitting Provider Internal Medicine; Emergency Provider Emergency Medicine; Visit Provider Internal Medicine
DX: I63.432 Cerebral infarction due to embolism of left posterior cerebral artery (principal); R47.01 Aphasia; I63.422 Cerebral infarction due to embolism of left anterior cerebral artery; I10 Essential (primary) hypertension; F17.210 Nicotine dependence, cigarettes, uncomplicated; I25.10 Atherosclerotic heart disease of native coronary artery without angina pectoris; E66.9 Obesity, unspecified; R29.704 NIHSS score 4; Z68.31 Body mass index [BMI] 31.0-31.9, adult; Z79.01 Long term (current) use of anticoagulants; Z79.82 Long term (current) use of aspirin; Z79.899 Other long term (current) drug therapy
CPT/HCPCS: 36415; 70450; 70496; 70498; 70551; 71045; 80048; 80061; 82962; 83036; 83735; 84100; 84443; 84484; 85025; 85610; 85730; 92523; 92610; 93005; 93306; 93312; 93320; 93325; 94762; 97161; 97166; 99285; J7030; J7040; Q9967; A4216; J7799

== ENCOUNTER 2023-12-14 14:30 | Outpatient (RCR) | payer MEDICARE, SELFPAY ==
--- NOTE | 2023-06-16 10:18 | HP.SP.EV_ITS ---
History History Date of Eval: 06/15/23 Attending Doctor: Referring Doctor: Reason for Referral: MIXED EXPRESSIVE APHASIA/ACUTE STROKE. DR FONTANEZ FAX Medical Diagnosis (from RX): aphasia Previous speech therapy: Yes Other Relevant Medical History/Diagnoses/Surgery: Chris is a 68 year old woman who was seen at [facility] for a speech and language evaluation. This past S at, Pt went to [facility] & was transferred to [place]. Pt was diagnosis with having a stroke. She was released last night. Pt lives alone in [place] & is still able to drive. Pt has 2 sister who live in [place] who will be helping with her care. Medications related to this diagnosis: pain & anxiety, blood pressure medication Smoking Status: Current every day smoker Hx Smoking: Yes Pain Is pain an issue with your current prescribed condition?: No Personal Preferred language: Albanian Patient Allergies Allergies Allergies: Allergies No Known Allergies Allergy (Verified 06/12/23 11:59) Subjective Dysphagia Comments pt report: -: no reported concerns with eating & drinking Objective Cog/Ling/Com Test Administered Iaubelejj-Rxvjwlyddr-Xehggmaeuesjf Assessment Administered: Yes Xeebmjoxr-Wksuoihdrh-Nxwzadqgqetwa Assessment: Cognitive ? Linguistic skills were evaluated using patient/family interview, skilled observation and informal evaluation through tasks completed by the patient. Orientation Orientation: Person Identification Body parts/objects: Moderate Answer Yes/No Questions Simple: Mild Follows Commands 1 Step: WFL 2 Step: Severe Comments Comments: 1 step directions: 2/2 2 step directions: 0/2 yes/no question; 4/5, increased to 5/5 cued * with written choices to support answer choice Orientation: Name: chris gomez unable to name last name When were you born: answered with Phonemic cues What type of illness: it was bad Where are you now: [place], unable to elaborate about specific location Repetition Words: Severe Naming Responsive naming: Severe Conversational Tasks Conversational Tasks: Moderate and Severe Comments: pt had moderate/severe difficulty participating in conversation and anwsering questions. Pt can get out some strings of words when she is talking, but often was unable to find the words she was looking for. Pt was unable to ask questions to the ST or answer questions that were not yes/no. Comments Comments: Picture naming (common objects): 08/02 Reading Picture-Word Matching Picture-Word matching: Moderate Comments: /5 Reading Comprehension Words: Moderate Phrases: Severe Sentences: Severe Oral Reading Words: Moderate Writing Comments: Pt was unable to write her name despite max support Medication Reading a medication label: Severe Correctly stating instructions of medications: Severe Completing medications independently: Severe Judgement & Reasoning Judgement/Reasoning: Moderate Reference: Neuro-QoL instrument HDQLIFE - Speech Difficulties In the past 7 days. It was difficult for other people to understand me.: Always Is was difficult to speak clearly?: Always In the past 7 days.. How often did you limit your social activites because you had difficulty speaking?: Always In the past 7 days... I had trouble speaking.: Very much I was frustrated by my speech difficulties.: Very much How much DIFFICULTY do you have... ...saying what you want to say?: A lot of difficulty Score HDQLIFE Speech Difficulties Raw Score: 29 HDQLIFE Speech Difficulties T - Score: 70 Radiation Oncology Patient Plan Plan Plan: Will recommend Pt for weekly outpatient speech therapy intervention address severe expressive and receptive aphasia. Pt would benefit from verbal and visual modeling, verbal/visual and tactile cuing, repeated practice, circum locution training, and immediate feedback to improve communication. Without skilled intervention Pt is at risk for difficulty communicating basic, medical, emergent, social wants & needs, and interacting with family/friends at home, and during social interactions. Recommendations MBS: No Treatment Warranted: Yes Treatment Warranted: Receptive/ Expressive Language Progress Prognosis: Good Frequency Frequency: 2x /Week Duration: 4-6 Months Goals that are Established Determination:: Goals will be added/modified as deemed necessary and appropriate. Therapy will be discontinued when results of re-evaluation indicate therapy is no longer needed or lack of progress has been documented. Goal #1-5 Goal #1: Pt will name common objects with mod cues with 70% acc to facilitate increased communication and decreased frustration on 3 measured sessions. Goal #2: Pt will answer biographical information on 4/5 trials to increase safety and ability to express information in daily & medical situations over 3 measured sessions. Goal #3: Pt will utilize words, gestures and/or augmentative communication to make request, comment, answer questions, and repair communication breakdowns given mod cues during conversation 5 times during 3/4 sessions. Goal #4: Pt will read single words out loud with 80% acc given up to mod cues over 3 measured sessions. Goal #5: Pt will write answers biographical information on 4/5 trials to increase safety and ability to express information in daily & medical situations over 3 measured sessions Goal #6-10 Goal #6: Pt's family will participate in pt's POC and implement a plan to help Chris safely carry out basic to complex life functions re: medication management, medical appointments, cooking, paying bills, etc with 1 month of the initial evaluation Education Patient Instruction Patient Education: Diagnosis and Treatment Plan Person Taught: Patient and Family Teaching Method: Discussion Response to teaching: Reinforcement needed
--- NOTE | 2023-09-05 14:33 | HP.SP.REEV ---
Patient Allergies Allergies Allergies: Allergies No Known Allergies Allergy (Verified 06/12/23 11:59) Previous/Current Goals Goals 1-5 Previous Goal #1: Pt will name common objects with mod cues with 70% acc to facilitate increased communication and decreased frustration on 3 measured sessions. Goal 1 Status: Goal Progressin/25 one syllable words with written and verbal cues Previous Goal #2: Pt will answer biographical information on 4/5 trials to increase safety and ability to express information in daily & medical situations over 3 measured sessions. Goal 2 Status: Goal Progressing: Pt able to state with cues as needed: - First Name (I) - Last name (C) - Birthday (only part of year year) (I) - Age - unable to say age - Vince (I) - Son's name (I) - Sisters; 07/06 (C) (luna cade debbie) - [facility] ([place]): said jayjay when cued Previous Goal #3: Pt will utilize words, gestures and/or augmentative communication to make request, comment, answer questions, and repair communication breakdowns given mod cues during conversation 5 times during 3/4 sessions. Goal 3 Status: Goal Progressing: Created a low tech aac board for basic needs & family member names Previous Goal #4: Pt will read single words out loud with 80% acc given up to mod cues over 3 measured sessions. Goal 4 Status: Goal Partially Met (07/06): Single word, Reading Comprehension, choice of 4 (easy); 80% acc (02/10) Pt read and answered questions about herself and personal information during 01/08 opp. Previous Goal #5: Pt will write answers biographical information on 4/5 trials to increase safety and ability to express information in daily & medical situations over 3 measured sessions Goal 5 Status: Goal Progressing: Pt unable to write first name, worked in tracing it with her fingers with hand over hand cues, then with a marker. This required max cues, but she is starting to make some improvements Goals 6-10 Previous Goal #6: Pt's family will participate in pt's POC and implement a plan to help Derek safely carry out basic to complex life functions re: medication management, medical appointments, cooking, paying bills, etc with 1 month of the initial evaluation Goal 6 Status: Goal Progressing: Pt's son has been helping her practice at home recently and taking her to speech therapy. Pt has been attending her appointment more reliably since her son has begun to help her management her appointments & driving her. Previous Goal #7: Pt will participate in an ongoing evaluation of her language skills to determine appropriate goals and assess progress Goal 7 Status: Single word, Listening Comprehension, choice of 4 (easy); 70% acc (6/10) Worked on automatic - - pt able to name 1-20 - abc with max cues Subjective Dysphagia Comments pt report: -: no reported concerns with eating & drinking Objective Cog/Ling/Com Test Administered Tipmmlzjb-Xtvdasmvgj-Fcxlalisctkdl Assessment Administered: Yes Oocyryoby-Jcunmjoqvp-Ypkixbrbvnchb Assessment: Cognitive ? Linguistic skills were evaluated using patient/family interview, skilled observation and informal evaluation through tasks completed by the patient. Orientation Orientation: Person Identification Body parts/objects: Moderate Answer Yes/No Questions Simple: Mild Follows Commands 1 Step: WFL 2 Step: Severe Comments Comments: 1 step directions: 2/2 2 step directions: 0/2 yes/no question; 4/5, increased to 5/5 cued * with written choices to support answer choice Orientation: Name: derek gomez unable to name last name When were you born: answered with Phonemic cues What type of illness: it was bad Where are you now: [place], unable to elaborate about specific location Repetition Words: Severe Naming Responsive naming: Severe Conversational Tasks Conversational Tasks: Moderate and Severe Comments: pt had moderate/severe difficulty participating in conversation and anwsering questions. Pt can get out some strings of words when she is talking, but often was unable to find the words she was looking for. Pt was unable to ask questions to the ST or answer questions that were not yes/no. Comments Comments: Picture naming (common objects): 08/02 Reading Picture-Word Matching Picture-Word matching: Moderate Comments: 09/05 Reading Comprehension Words: Moderate Phrases: Severe Sentences: Severe Oral Reading Words: Moderate Writing Comments: Pt was unable to write her name despite max support Medication Reading a medication label: Severe Correctly stating instructions of medications: Severe Completing medications independently: Severe Judgement & Reasoning Judgement/Reasoning: Moderate Reference: Neuro-QoL instrument HDQLIFE - Speech Difficulties In the past 7 days. It was difficult for other people to understand me.: Always Is was difficult to speak clearly?: Always In the past 7 days.. How often did you limit your social activites because you had difficulty speaking?: Always In the past 7 days... I had trouble speaking.: Very much I was frustrated by my speech difficulties.: Very much How much DIFFICULTY do you have... ...saying what you want to say?: A lot of difficulty Score HDQLIFE Speech Difficulties Raw Score: 29 HDQLIFE Speech Difficulties T - Score: 70 Radiation Oncology Patient Plan Plan Plan: Will recommend Pt for weekly outpatient speech therapy intervention address severe expressive and receptive aphasia. Pt would benefit from verbal and visual modeling, verbal/visual and tactile cuing, repeated practice, circumlocution training, and immediate feedback to improve communication. Without skilled intervention Pt is at risk for difficulty communicating basic, medical, emergent, social wants & needs, and interacting with family/friends at home, and during social interactions. Recommendations MBS: No Treatment Warranted: Yes Treatment Warranted: Speech Sound Production and Receptive/ Expressive Language Progress Prognosis: Excellent Frequency Frequency: 2x /Week Duration: 2-4 Months Goals that are Established Determination:: Goals will be added/modified as deemed necessary and appropriate. Therapy will be discontinued when results of re-evaluation indicate therapy is no longer needed or lack of progress has been documented. Goal #1-5 Goal #1: Pt will name common objects with mod cues with 70% acc to facilitate increased communication and decreased frustration on 3 measured sessions. Goal #2: Pt will answer biographical information on 4/5 trials to increase safety and ability to express information in daily & medical situations over 3 measured sessions. Goal #3: Pt will utilize words, gestures and/or augmentative communication to make request, comment, answer questions, and repair communication breakdowns given mod cues during conversation 5 times during 3/4 sessions. Goal #4: Pt will read single words and select the corresponding picture from a choice of 4 with 80% acc I over 3 measured sessions. Goal #5: Pt will listen to single words and select the corresponding picture from a choice of 4 with 80% acc I over 3 measured sessions. Goal #6-10 Goal #6: Pt's family will participate in pt's POC and implement a plan to help Derek safely carry out basic to complex life functions re: medication management, medical appointments, cooking, paying bills, etc with 1 month of the initial evaluation Goal #7: Pt will verbalize automatic words, phrases, and songs to increase her expressive language during 4/5 opp with up to min cues over 3 measured sessions Goal #8: Pt will write answers biographical information on /5 trials to increase safety and ability to express information in daily & medical situations over 3 measured sessions Goal #9: Pt will participate in an ongoing evaluation of her language skills to determine appropriate goals and assess progress Education Patient Instruction Patient Education: Diagnosis and Treatment Plan Person Taught: Patient and Family Teaching Method: Discussion Response to teaching: Reinforcement needed
--- NOTE | 2023-10-31 09:19 | HP.SP.REEV ---
Visit History Visit Info Date of Eval: 06/15/23 Visit: 1 Insurance Date Limit: 07/03/24 Legislative Assistant: GUY History Attending Doctor: Referring Doctor: Reason for Referral: MIXED EXPRESSIVE APHASIA/ACUTE STROKE. TO FAX Medical Diagnosis: aphasia Previous speech therapy: Yes Other Relevant Medical History/Diagnoses/Surgery: Derek is a 68 year old woman who was seen at [facility] for a speech and language evaluation. This past Tuesday, Pt went to [facility] & was transferred to [place]. Pt was diagnosis with having a stroke. She was released last night. Pt lives alone in [place] & is still able to drive. Pt has 2 sister who live in [place] who will be helping with her care. Medications related to this diagnosis: pain & anxiety, blood pressure medication Smoking Status: Current every day smoker Diagnosis Diagnosis: cva; expressive & receptive aphasia Pain Is pain an issue with your current prescribed condition?: No Personal Preferred language: Tajik Patient Allergies Allergies Allergies: Allergies No Known Allergies Allergy (Verified 10/05/23 16:03) Previous/Current Goals Goals 1-5 Previous Goal #1: Pt will name common objects with mod cues with 70% acc to facilitate increased communication and decreased frustration on 3 measured sessions. Goal 1 Status: Goal Progressing: One syllable words: 08/28 I, increased 12/26 with cues. Previous Goal #2: Pt will answer biographical information on 4/5 trials to increase safety and ability to express information in daily & medical situations over 3 measured sessions. Goal 2 Status: Goal Progressing: Pt able to state the follow (given access to aac binder): - First Name: I - Last name: I - Birthday: Pt required cues to use her binder, but I found the page afterwards. Unable tot I state . - Age - Cued - Vince - I - Bird (cassandra) - Turned to page with min cues. Pt stated bird and goes for Cassandra after cues. - Son's name: I - Sisters; 07/06 (C) (rayo) - found page I. - City ([place]): Pt stated jeromes today with cues - found page I - State: unable to state (stated [place] him) Previous Goal #3: Pt will utilize words, gestures and/or augmentative communication to make request, comment, answer questions, and repair communication breakdowns given mod cues during conversation 5 times during 3/4 sessions. Goal 3 Status: Goal Progressing: Worked on adding to the pt's aac book to decrease frustration with grocery store trips. Created lists of food in 5 categories & grocery stores. ST made pages with written words & pictures for her aac book. ST used pictures to help repair x2 with max cues after the Pt was unable to effectively use words or gestures to communicate her message Previous Goal #4: Pt will read single words and select the corresponding picture from a choice of 4 with 80% acc I over 3 measured sessions. Goal 4 Status: Goal MET: Single word, Reading Comprehension, choice of 4 (easy); 100% acc (10/10) Single word, Reading Comprehension, choice of 6 (easy); 70% acc (7/10) Increasing to choice of 6. Previous Goal #5: Pt will listen to single words and select the corresponding picture from a choice of 4 with 80% acc I over 3 measured sessions. Goal 5 Status: Goal MET: Single word, Listening Comprehension, choice of 4 (easy); 80% acc (8/10) Met for easy. Move to Medium. Comprehension, choice of 4 (med); 80% acc (8/10) Moving to choice of 6. Goals 6-10 Previous Goal #6: Pt's family will participate in pt's POC and implement a plan to help Derek safely carry out basic to complex life functions re: medication management, medical appointments, cooking, paying bills, etc with 1 month of the initial evaluation Goal 6 Status: Goal Ongoing: Pt went to the dr. No Neuro follow up recommended. Pt's doctor signed the driving form and submitted it to the appropriate location per pt's son. Pt's new PCP is Dr. Dent at [facility]. Per pt's son, pt's doctor said she can drive once the paper is in. ST cautioned Pt and son that following directions & reading road signs may still be difficult. Previous Goal #7: Pt will verbalize automatic words, phrases, and songs to increase her expressive language during 4/5 opp with up to min cues over 3 measured sessions Goal 7 Status: Goal Progressing: ABC - repeated ready set go - repeated x1 5 nursey rhyme songs were trialed with left hand tapping and max cues. Previous Goal #8: Pt will write answers biographical information on 4/5 trials to increase safety and ability to express information in daily & medical situations over 3 measured sessions Goal 8 Status: Goal Progressing: Worked on copying Derek's name. Derek was able to trace over her derek with mod cues today. Previous Goal #9: When shown both digital & analog clock times, Pt will determine what time a clock reads and if its AM/PM when given a choice of 2 during 02/10 opp over 3 measured sessions Goal 9 Status: Goal Progressing: Pt matched the time on a clock to the correct answer from a choice of 3 during / opp. Subjective Dysphagia Comments pt report: -: no reported concerns with eating & drinking Objective Cog/Ling/Com Test Administered Kswtnjxoj-Bqvsuegwhp-Wzkgpwhjclmxd Assessment Administered: Yes Djfjfxodr-Tgcfvjqhlj-Vpwqyjowsuulf Assessment: Cognitive ? Linguistic skills were evaluated using patient/family interview, skilled observation and informal evaluation through tasks completed by the patient. Orientation Orientation: Person Identification Body parts/objects: Moderate Answer Yes/No Questions Simple: Mild Follows Commands 1 Step: WFL 2 Step: Severe Comments Comments: 1 step directions: 2/2 2 step directions: 0/2 yes/no question; 4/5, increased to 5/5 cued * with written choices to support answer choice Orientation: Name: derek gomez unable to name last name When were you born: answered with Phonemic cues What type of illness: it was bad Where are you now: [place], unable to elaborate about specific location Repetition Words: Severe Naming Responsive naming: Severe Conversational Tasks Conversational Tasks: Moderate and Severe Comments: pt had moderate/severe difficulty participating in conversation and anwsering questions. Pt can get out some strings of words when she is talking, but often was unable to find the words she was looking for. Pt was unable to ask questions to the ST or answer questions that were not yes/no. Comments Comments: Picture naming (common objects): 08/02 Reading Picture-Word Matching Picture-Word matching: Moderate Comments: 09/05 Reading Comprehension Words: Moderate Phrases: Severe Sentences: Severe Oral Reading Words: Moderate Writing Comments: Pt was unable to write her name despite max support Medication Reading a medication label: Severe Correctly stating instructions of medications: Severe Completing medications independently: Severe Judgement & Reasoning Judgement/Reasoning: Moderate Reference: Neuro-QoL instrument HDQLIFE - Speech Difficulties In the past 7 days. It was difficult for other people to understand me.: Always Is was difficult to speak clearly?: Always In the past 7 days.. How often did you limit your social activites because you had difficulty speaking?: Always In the past 7 days... I had trouble speaking.: Very much I was frustrated by my speech difficulties.: Very much How much DIFFICULTY do you have... ...saying what you want to say?: A lot of difficulty Score HDQLIFE Speech Difficulties Raw Score: 29 HDQLIFE Speech Difficulties T - Score: 70 Radiation Oncology Patient Plan Plan Plan: Will recommend Pt for weekly outpatient speech therapy intervention address severe expressive and receptive aphasia. Pt would benefit from verbal and visual modeling, verbal/visual and tactile cuing, repeated practice, circumlocution training, and immediate feedback to improve communication. Without skilled intervention Pt is at risk for difficulty communicating basic, medical, emergent, social wants & needs, and interacting with family/friends at home, and during social interactions. Recommendations MBS: No Treatment Warranted: Yes Treatment Warranted: Receptive/ Expressive Language Progress Prognosis: Excellent Frequency Frequency: 1-2x /Week Duration: 4-6 Months Goals that are Established Determination:: Goals will be added/modified as deemed necessary and appropriate. Therapy will be discontinued when results of re-evaluation indicate therapy is no longer needed or lack of progress has been documented. Goal #1-5 Goal #1: Pt will name common objects with mod cues with 70% acc to facilitate increased communication and decreased frustration on 3 measured sessions. Goal #2: Pt will answer biographical information on 4/5 trials (name, , age, city, state) to increase safety and ability to express information in daily & medical situations over 3 measured sessions. Goal #3: Pt will utilize words, gestures and/or augmentative communication to make request, comment, answer questions, and repair communication breakdowns given mod cues during conversation 5 times during 3/4 sessions. Goal #4: Pt will read single words and select the corresponding picture from a choice of 6 with 80% acc I over 3 measured sessions. Goal #5: Pt will listen to single words and select the corresponding picture from a choice of 6 with 80% acc I over 3 measured sessions. Goal #6-10 Goal #6: Pt's family will participate in pt's POC and implement a plan to help Derek safely carry out basic to complex life functions re: medication management, medical appointments, cooking, paying bills, etc. Goal #7: Pt will verbalize automatic words, phrases, and songs to increase her expressive language during 10/06 opp with up to min cues over 3 measured sessions Goal #8: Pt will write her first and last name given a model to increase safety and ability to express information in daily & medical situations over 3 measured sessions Goal #9: When shown both digital & analog clock times, Pt will determine what time a clock reads and if its AM/PM when given a choice of 2 during 02/10 opp over 3 measured sessions Education Patient Instruction Patient Education: Diagnosis and Treatment Plan Person Taught: Patient and Family Teaching Method: Discussion Response to teaching: Reinforcement needed
--- NOTE | 2023-12-14 16:04 | HP.SP.REEV ---
Visit History Visit Info Date of Eval: 06/15/23 Visit: 1 Insurance Date Limit: 07/03/24 Payroll Auditor: GUY Elias Attending Doctor: Referring Doctor: Reason for Referral: MIXED EXPRESSIVE APHASIA/ACUTE STROKE. TO FAX Medical Diagnosis: aphasia Previous speech therapy: Yes Other Relevant Medical History/Diagnoses/Surgery: Derek is a 68 year old woman who was seen at [facility] for a speech and language evaluation. This past Tuesday, Pt went to [facility] & was transferred to [place]. Pt was diagnosis with having a stroke. She was released last night. Pt lives alone in [place] & is still able to drive. Pt has 2 sister who live in [place] who will be helping with her care. Medications related to this diagnosis: pain & anxiety, blood pressure medication Smoking Status: Current every day smoker Diagnosis Diagnosis: cva; expressive & receptive aphasia Pain Is pain an issue with your current prescribed condition?: No Personal Preferred language: Hungarian Patient Allergies Allergies Allergies: Allergies No Known Allergies Allergy (Verified 10/05/23 16:03) Previous/Current Goals Goals 1-5 Previous Goal #1: Pt will name common objects with mod cues with 70% acc to facilitate increased communication and decreased frustration on 3 measured sessions. Goal 1 Status: Goal progressin/25 I, increased to 12/26 with written and/or verbal cues. Introduced 10 cvcv words. Pt repeated 3 with cues as needed. Previous Goal #2: Pt will answer biographical information on /5 trials (name, , age, city, state) to increase safety and ability to express information in daily & medical situations over 3 measured sessions. Goal 2 Status: Goal progressing: Pt able to state the follow (given access to aac binder): 09/05 I - First Name: I - Last name: - - Birthday: I - Age: I- able to say 68 - City ([place]): unable despite max cues. - State: unable despite max cues. Pt stated [place] with cues. - Vince: I - Bird (andrew): unable despite max cues. Pt repeated soey with cues. - Son's name: I - Sisters; 07/06 (I) Previous Goal #3: Pt will utilize words, gestures and/or augmentative communication to make request, comment, answer questions, and repair communication breakdowns given mod cues during conversation 5 times during 3/4 sessions. Goal 3 Status: Goal progressing: Pt was able to participate in conversation with little difficulty with word finding and x1 conversation breakdown. This is an improvement from previous appointments Previous Goal #4: Pt will read single words and select the corresponding picture from a choice of 6 with 80% acc I over 3 measured sessions. Goal 4 Status: Goal progressing: Single word, Reading Comprehension, choice of 6 (hard); 80% acc. Goal met during two session. Previous Goal #5: Pt will listen to single words and select the corresponding picture from a choice of 6 with 80% acc I over 3 measured sessions. Goal 5 Status: Goal Progressing: Single word, Reading Comprehension, choice of 6 (hard); 80% acc. Goal met during one session. Goals 6-10 Previous Goal #6: Pt's family will participate in pt's POC and implement a plan to help Derek safely carry out basic to complex life functions re: medication management, medical appointments, cooking, paying bills, etc. Goal 6 Status: Pt's son has been attending session and is involved in the POC. Previous Goal #7: Pt will verbalize automatic words, phrases, and songs to increase her expressive language during 10/06 opp with up to min cues over 3 measured sessions Goal 7 Status: Goal progressing: Worked on saying 1-10 while pointing to the corresponding number. Pt was able to complete this activity with 60% acc. and max cues. Previous Goal #8: Pt will write her first and last name given a model to increase safety and ability to express information in daily & medical situations over 3 measured sessions Goal 8 Status: Goal progressing: Pt traced her first and last name with up to mod cues. Pt copied her first name below with min cues and her last name with max cues. Subjective Dysphagia Comments pt report: -: no reported concerns with eating & drinking Objective Cog/Ling/Com Test Administered Dqsfuvqkv-Tfwsmmldsl-Actxaifqpcdpf Assessment Administered: Yes Ovbeuoqxb-Bytkqeiayr-Cktskakvareiw Assessment: Cognitive ? Linguistic skills were evaluated using patient/family interview, skilled observation and informal evaluation through tasks completed by the patient. Orientation Orientation: Person Identification Body parts/objects: Moderate Answer Yes/No Questions Simple: Mild Follows Commands 1 Step: WFL 2 Step: Severe Comments Comments: 1 step directions: 2/2 2 step directions: 0/2 yes/no question; 4/5, increased to 5/5 cued * with written choices to support answer choice Orientation: Name: derek gomez unable to name last name When were you born: answered with Phonemic cues What type of illness: it was bad Where are you now: [place], unable to elaborate about specific location Repetition Words: Severe Naming Responsive naming: Severe Conversational Tasks Conversational Tasks: Moderate and Severe Comments: pt had moderate/severe difficulty participating in conversation and anwsering questions. Pt can get out some strings of words when she is talking, but often was unable to find the words she was looking for. Pt was unable to ask questions to the ST or answer questions that were not yes/no. Comments Comments: Picture naming (common objects): 08/02 Reading Picture-Word Matching Picture-Word matching: Moderate Comments: 09/05 Reading Comprehension Words: Moderate Phrases: Severe Sentences: Severe Oral Reading Words: Moderate Writing Comments: Pt was unable to write her name despite max support Medication Reading a medication label: Severe Correctly stating instructions of medications: Severe Completing medications independently: Severe Judgement & Reasoning Judgement/Reasoning: Moderate Reference: Neuro-QoL instrument HDQLIFE - Speech Difficulties In the past 7 days. It was difficult for other people to understand me.: Always Is was difficult to speak clearly?: Always In the past 7 days.. How often did you limit your social activites because you had difficulty speaking?: Always In the past 7 days... I had trouble speaking.: Very much I was frustrated by my speech difficulties.: Very much How much DIFFICULTY do you have... ...saying what you want to say?: A lot of difficulty Score HDQLIFE Speech Difficulties Raw Score: 29 HDQLIFE Speech Difficulties T - Score: 70 Radiation Oncology Patient Plan Plan Plan: Will recommend Pt for weekly outpatient speech therapy intervention address severe expressive and receptive aphasia. Pt would benefit from verbal and visual modeling, verbal/visual and tactile cuing, repeated practice, circumlocution training, and immediate feedback to improve communication. Without skilled intervention Pt is at risk for difficulty communicating basic, medical, emergent, social wants & needs, and interacting with family/friends at home, and during social interactions. Recommendations MBS: No Treatment Warranted: Yes Treatment Warranted: Receptive/ Expressive Language Progress Prognosis: Excellent Frequency Frequency: 1-2x /Week Duration: 2-4 Months Goals that are Established Determination:: Goals will be added/modified as deemed necessary and appropriate. Therapy will be discontinued when results of re-evaluation indicate therapy is no longer needed or lack of progress has been documented. Goal #1-5 Goal #1: Pt will name common objects with mod cues with 70% acc to facilitate increased communication and decreased frustration on 3 measured sessions. Goal #2: Pt will answer biographical information on 4/5 trials (name, , age, city, state) to increase safety and ability to express information in daily & medical situations over 3 measured sessions. Goal #3: Pt will utilize words, gestures and/or augmentative communication to make request, comment, answer questions, and repair communication breakdowns given mod cues during conversation 5 times during 3/4 sessions. Goal #4: Pt will read single words and select the corresponding picture from a choice of 6 with 80% acc I over 3 measured sessions. Goal #5: Pt will listen to single words and select the corresponding picture from a choice of 6 with 80% acc I over 3 measured sessions. Goal #6-10 Goal #6: Pt's family will participate in pt's POC and implement a plan to help Derek safely carry out basic to complex life functions re: medication management, medical appointments, cooking, paying bills, etc. Goal #7: Pt will verbalize automatic words, phrases, and songs to increase her expressive language during 4/5 opp with up to min cues over 3 measured sessions Goal #8: Pt will write her first and last name given a model to increase safety and ability to express information in daily & medical situations over 3 measured sessions Education Patient Instruction Patient Education: Diagnosis and Treatment Plan Person Taught: Patient and Family Teaching Method: Discussion Response to teaching: Reinforcement needed
== END 2023-12-14 19:00 | disposition home or self-care (01) ==
LOC: SP 14:30
PROVIDERS: Referring Provider Internal Medicine; Visit Provider Internal Medicine
DX: Z86.73 Personal history of transient ischemic attack (TIA), and cerebral infarction without residual deficits (principal); R47.01 Aphasia
CPT/HCPCS: 92507; 92523

== ENCOUNTER 2024-04-02 14:00 | Outpatient (RCR) | payer MEDICARE, MEDICAID, SELFPAY ==
--- NOTE | 2024-02-15 15:43 | HP.SPREEV_ITS ---
Visit History Visit Info Date of Eval: 06/15/23 Visit: 1 Insurance Date Limit: 07/03/24 Chuck Wagon Driver: GUY Elias Attending Doctor: Referring Doctor: Reason for Referral: MIXED EXPRESSIVE APHASIA/ACUTE STROKE. TO FAX Smoking Status: Current every day smoker Diagnosis Diagnosis: expressive language disorder Pain Is pain an issue with your current prescribed condition?: No Personal Preferred language: Romansh Patient Allergies Allergies Allergies: Allergies No Known Allergies Allergy (Verified 10/05/23 16:03) Previous/Current Goals Goals 1-5 Previous Goal #1: Pt will name common objects with mod cues with 70% acc to facilitate increased communication and decreased frustration on 3 measured sessions. Goal 1 Status: Goal Progressing: trial 1) body parts (1-2 syllables): 0/10 I, increased to 2/10 with max cues trial 2) clothes (1-2 syllables): 0/10 I, increased to 2/[address] labeled the food in her binder and pt repeated x2 foods. Previous Goal #2: Pt will answer biographical information on 4/5 trials (name, , age, city, state) to increase safety and ability to express information in daily & medical situations over 3 measured sessions. Goal 2 Status: Goal Progressing: Pt able to state the following (with her AAC binder today): First name: able to produce after revisiting the 3rd time Last name: Pt unable to produce despite max cues. : unable to say, able to point to numbers with max cues. Age: Pt able to produce 68 today. City: Pt unable to produce despite max cues State: Pt unable to produce despite max cues. Pt produced oh him & oh have Son's Name: I Dog's Name: I Bird's Name: Pt able to produce Zo -her. Sisters' Names: / I. Pt able to produce [place] for Kisha for her oldest sister. Previous Goal #3: Pt will utilize words, gestures and/or augmentative communication to make request, comment, answer questions, and repair communication breakdowns given mod cues during conversation 5 times during 3/4 sessions. Goal 3 Status: Goal Progressing: Pt participated in conversation with ST and rephrased with ST did not understand her x1. Pt participates well at the conversational level, but misses content words. The common words she uses in conversation, she required max support to repeat when isolated Previous Goal #4: Pt will read single words and select the corresponding picture from a choice of 6 with 80% acc I over 3 measured sessions. Goal 4 Status: Goal Met: Single word, reading comprehension, choice of 6 (hard): 100% accuracy I Previous Goal #5: Pt will listen to single words and select the corresponding picture from a choice of 6 with 80% acc I over 3 measured sessions. Goal 5 Status: Goal Partially Met: Single word, listening comprehension, choice of 6 (hard): 90% accuracy I, increased to 100% with cues. Goals 6-10 Previous Goal #6: Pt's family will participate in pt's POC and implement a plan to help Derek safely carry out basic to complex life functions re: medication management, medical appointments, cooking, paying bills, etc. Goal 6 Status: Pt's son attends sessions and participates in Derek's POC. ST recommends increasing the amount of home practice she completes. Previous Goal #7: Pt will verbalize automatic words, phrases, and songs to increase her expressive language during 5 opp with up to min cues over 3 measured sessions Goal 7 Status: Goal Progressing: ST and Pt sang happy birthday to you. Pt was able to fill her name in the song but did not produce any other intelligible words. Previous Goal #8: Pt will write her first and last name given a model to increase safety and ability to express information in daily & medical situations over 3 measured sessions Goal 8 Status: Goal Progressing: Pt was able to copy her first name with a written model with min cues. Pt was able to copy her last name with max cues. Pt showed increased frustration with writing her last name. Reference: Neuro-QoL instrument Radiation Oncology Patient Plan Plan Plan: Will recommend Pt for weekly outpatient speech therapy intervention address severe expressive and receptive aphasia. Pt would benefit from verbal and visual modeling, verbal/visual and tactile cuing, repeated practice, circumlocution training, and immediate feedback to improve communication. Without skilled intervention Pt is at risk for difficulty communicating basic, medical, emergent, social wants & needs, and interacting with family/friends at home, and during social interactions. Goal #1-5 Goal #1: Pt will name common objects with mod cues with 70% acc to facilitate increased communication and decreased frustration on 3 measured sessions. Goal #2: Pt will answer biographical information on 4/5 trials (name, , age, city, state) to increase safety and ability to express information in daily & medical situations over 3 measured sessions. Goal #3: Pt will utilize words, gestures and/or augmentative communication to make request, comment, answer questions, and repair communication breakdowns given mod cues during conversation 5 times during 3/4 sessions. Goal #4: Pt will read phrases and select the one that matches a corresponding picture from a choice of 4 with 80% acc I over 3 measured sessions. Goal #5: Pt will listen to single words and select the corresponding picture from a choice of 6 with 80% acc I over 3 measured sessions. Goal #6-10 Goal #6: Pt will write her first and last name given a model to increase safety and ability to express information in daily & medical situations over 3 measured sessions Goal #7: Pt will verbalize automatic words, phrases, and songs to increase her expressive language during 4/5 opp with up to min cues over 3 measured sessions
== END 2024-04-02 19:00 | disposition home or self-care (01) ==
LOC: SP 14:00
PROVIDERS: PCP Family Medicine; Referring Provider Internal Medicine; Visit Provider Internal Medicine
DX: Z86.73 Personal history of transient ischemic attack (TIA), and cerebral infarction without residual deficits (principal); R47.01 Aphasia
CPT/HCPCS: 92507